=== PATIENT | female | born 1955 | race Caucasian/White ===

== ENCOUNTER 2021-10-22 15:23 | Outpatient (CLI) | payer MEDICAID, SELFPAY ==
[2021-10-22 19:43] LABS: Albumin* 4.5 g/dL (3.3-5.0); Chloride* 105 mmol/L (96-114); Sodium* 142 mmol/L (135-149)
[2021-10-22 19:44] LABS: Potassium* 4.5 mmol/L (3.6-5.1)
[2021-10-22 19:46] LABS: Alkaline Phosphatase* 84 U/L (40-150); Aspartate Amino Transferase* 28 U/L (12-35); Bilirubin Total* 0.3 mg/dL (0.1-1.5); Blood Urea Nitrogen* 8 mg/dL (7-30); Carbon Dioxide* 29 mmol/L (20-32); Cholesterol* 238 mg/dL (90-199); Creatinine* 0.9 mg/dL (0.5-1.5); Estimated Glomerular Filt Rate 70 ml/min; Total Protein* 7.2 g/dL (6.0-8.3)
[2021-10-22 19:47] LABS: Alanine Aminotransferase* 17 U/L (4-35); Calcium* 10.1 mg/dL (8.4-10.6); Glucose* 100 mg/dL (60-115); HDL Cholesterol* 93 mg/dL (>=50); LDL Cholesterol Calculated 121 mg/dL (<100); Triglycerides* 118 mg/dL (40-149)
[2021-10-22 20:04] LABS: Vitamin D 25 Hydroxy* 21 ng/mL (30-80)
[2021-10-22 20:19] LABS: TSH With Reflex to FT4* 0.562 uIU/mL (0.270-4.200)
[2021-10-22 20:22] LABS: Ferritin* 11.9 ng/mL (11.1-264.0)
== END 2021-10-22 15:24 | disposition home or self-care (01) ==
PROVIDERS: PCP Family Medicine; Visit Provider Family Medicine
DX: Z00.00 Encounter for general adult medical examination without abnormal findings (principal); E03.9 Hypothyroidism, unspecified; M85.80 Other specified disorders of bone density and structure, unspecified site; K90.0 Celiac disease; F41.9 Anxiety disorder, unspecified; R73.03 Prediabetes; Z13.6 Encounter for screening for cardiovascular disorders
CPT/HCPCS: 80053; 80061; 82306; 82728; 84443

== ENCOUNTER 2021-11-14 14:31 | Outpatient (RCR) | payer OTHER, SELFPAY | END 2022-05-13 23:59 | disposition home or self-care (01) | LOC: CCIC 14:31 | PROVIDERS: PCP Family Medicine; Visit Provider Internal Medicine Hematology & Oncology | DX: D75.9 Disease of blood and blood-forming organs, unspecified (principal) | CPT/HCPCS: 99212; 99213 ==

== ENCOUNTER 2022-01-02 06:01 | Day surgery (SDC) | payer OTHER, SELFPAY ==
[2022-01-02] VITALS (14 sets, daily range): BP systolic 104–155; BP diastolic 69–93; PULSE 64–85; RESP 14–16; TEMP 36.3–36.8; O2SAT 88–100; BMI 25.4
[2022-01-02] MEDS: LACTATED RINGERS 1000 ML 1,000 ML 100 ML IV ×2 (06:30→08:47)
[2022-01-02] MEDS: SODIUM CHLORIDE 0.9 % (FLUSH) 10 ML SYRINGE IVF (06:43)
[2022-01-02 06:58] LABS: Hemoglobin* 13.9 gm/dL (12.0-16.0)
[2022-01-02] MEDS: CEFAZOLIN 2 GM INJ IVP (08:10)
--- NOTE | 2022-01-02 09:41 | W.ANESCHARGE ---
Anesthesia Charges Start Date/Time Anesthesia Start Date: 01/02/22 Anesthesia Start Time: 08:01 Stop Date/Time Anesthesia Stop Date: 01/02/22 Anesthesia Stop Time: 09:38 Summary Emergency: No
--- NOTE | 2022-01-02 10:11 | W.PM.GYNPROC ---
Procedure Note Date Seen: 01/02/22 Procedure Details: PREOPERATIVE DIAGNOSIS: History of cervical dysplasia with recent ASCUS Pap Intolerant of office exam Symptomatic stage II rectocele POSTOPERATIVE DIAGNOSIS: History of cervical dysplasia with recent ASCUS Pap Intolerant of office exam Symptomatic stage II rectocele Enterocele PROCEDURE: Colposcopy with cervical biopsy and endocervical curettage Posterior colporrhaphy and enterocele repair SURGEON: Annalise Barry MD BLOOD BANK LABORATORY TECHNOLOGIST: Sana Olvera MD ANESTHESIA: General IV FLUIDS: 1400 mL crystalloid URINE OUTPUT: 320 mL via straight catheterization EBL: 5 mL FINDINGS: 1. Upon colposcopy, no aceto-white epithelium was noted on the ectocervix. The cervix was atrophic in appearance with stenosis of cervical os. 2. Stage II rectocele again confirmed under anesthesia, with enterocele also confirmed at time of dissection of posterior vaginal wall. COMPLICATIONS: None PROCEDURE IN DETAIL: Patient was taken to the operating room with IV running. She was positioned in dorsal lithotomy position with her legs fully supported in Yellofin stirrups. General anesthesia was administered. New Speculum inserted. Cervix visualized and cleansed with 5% acetic acid. Colposcope employed to visualize cervix. Unable to view transformation zone, which was entirely within the endocervix. Cervical os was stenotic. Electronic Assembler Group Leader biopsy performed at 6 o'clock. Cervical os dilated with small Hegar dilators. ECC performed in a circumferential fashion and sent to pathology. Hemostasis was noted. Speculum was removed. Allis clamps were used to grasp the vaginal epithelium surrounding the cephalic extent of the posterior vaginal defect, and the remnants of the hymeneal ring laterally. The vaginal epithelium between these clamps was infiltrated with a total of 10 mL of 1% lidocaine with dilute epinephrine. Scalpel was used to incise the posterior vaginal epithelium in the midline, extending from the most cephalic reachable extent of the vagina to the posterior introitus. Vaginal epithelium was dissected away from the underlying fibromuscularis laterally with a combination of sharp and blunt dissection. Enterocele was visible from the most cephalic expect of the incision. The fibro muscularis surrounding this defect was closed with a pursestring suture of 3-0 Vicryl. Thereafter, the fibro muscularis was reapproximated in the midline overlying the posterior defect with interrupted sutures of 2 0 Vicryl in 2 layers. The overlying vaginal epithelium was trimmed. The vaginal epithelium was closed with a running stitch of 2 0 Vicryl. Hemostasis was noted. Vaginal introitus was of appropriate with at the end of the procedure. Rectal exam was performed, revealing no suture material within the rectum. Perineal body was without detectable defect. Patient tolerated procedure well and was taken to recovery area in stable condition..
--- NOTE | 2022-01-02 10:25 | PM.PROC ---
Procedure Note Time Seen by Provider: 10:26 Date Seen: 01/02/22 Date of procedure: 01/02/22 Will [facility] bill your pro fee for this procedure?: Yes Procedure: family services assistant op note: Preoperative diagnosis: 66-year-old with persistent LUCERO 1, grade II rectocele Postoperative diagnosis: Same with additional enterocele Procedure: Colposcopy with cervical biopsy, rectocele and enterocele repairs. Operative note: I was asked to assist Dr. Annalise Barry with the patient's surgery. I aided in dissection, visualization, and obtaining hemostasis. Please see Dr. Annalise Barry's note for complete details. Surgeon: Sana Olvera MD
--- NOTE | 2022-01-02 14:34 | W.ANESCHARGE ---
Anesthesia Charges Start Date/Time Anesthesia Start Date: 01/02/22 Anesthesia Start Time: 08:01 Stop Date/Time Anesthesia Stop Date: 01/02/22 Anesthesia Stop Time: 09:38 Summary Emergency: No
--- NOTE | 2022-01-02 17:40 | P.DS_ITS ---
DS: Providers Provider Time Seen by Provider: 12:00 Date Seen: 01/02/22 Primary care physician: Karol Duke MD Attending Physician on discharge: Annalise Barry MD DS: Diagnosis Discharge Diagnosis (1) Rectocele: Status: Acute LOCOMOTIVE ENGINEER ELECTRIC-Discharge Summary Hospital Course Hospital Course Narrative: Patient is a 66 year old admitted on 01/02/2022 for colposcopy with cervical biopsy, rectocele and enterocele repairs. Indication for surgery: History of cervical dysplasia with recent ASCUS Pap Intolerant of office exam Symptomatic stage II rectocele Intraoperative findings were notable for 1. Upon colposcopy, no aceto-white epithelium was noted on the ectocervix.? The cervix was atrophic in appearance with stenosis of cervical os. 2. Stage II rectocele again confirmed under anesthesia, with enterocele also confirmed at time of dissection of posterior vaginal wall.?. She had an uncomplicated surgery. Postoperative course has been uneventful. Vitals have been stable. She has remained afebrile. Today, on postoperative day 0, she reports the pain is well controlled, in fact, she has no pain. She has been able to ambulate Without difficulty. She is tolerating regular diet. She is passing flatus. Guerra catheter has been removed, and she is voiding without difficulty. She strongly desires discharge prior to it getting dark as she and her support person does not like to drive in the dark. I reviewed signs of surgical complications for which she should seek care. Patient verbalized understanding and is stable and appropriate for discharge. Time Spent with Patient Time attestation: Total time spent providing and/or coordinating discharge services: Time spent: Less than 30 minutes LOCOMOTIVE ENGINEER ELECTRIC - Exam Physical Exam: Vital signs: Temp Pulse Resp BP Pulse Ox O2 Del Method O2 Flow Rate 97.4 F L 85 16 122/74 96 8 01/02/22 11:27 01/02/22 11:58 01/02/22 11:58 01/02/22 11:58 01/02/22 11:58 01/02/22 11:58 01/02/22 09:40 Constitutional: Constitutional: no acute distress Routine HEENT Exam: Head: Present atraumatic and normal inspection Detailed Eye Exam: Eyelids: bilateral: normal inspection Routine Respiratory Exam: Respiratory: Present CTA bilaterally Routine Cardiovascular Exam: Cardiovascular: Present RRR Routine Abdominal Exam: Abdominal: Absent distended or guarding Routine Neurological Exam: Neurological: Present alert and oriented X3 LOCOMOTIVE ENGINEER ELECTRIC - DS: Data Data Completed and Pending Labs on day of discharge: Labs from last 24 hours 01/02/22 01/02/22 06:47 06:47 Hgb 13.9 Blood Type AB Positive Antibody Screen NEGATIVE Procedures Procedures: Procedures Operation Date: 01/02/22 07:15 Actual Procedure Side Surgeon p Colposcopy w/Endocervical biopsy Annalise Barry MD s Posterior Colporrhaphy Annalise Barry MD Discharge Plan Discharge Disposition: Home, Self-Care Discharging Surgeon: Annalise Barry Follow-Up Appointment: 2 weeks Prescriptions: New acetaminophen 325 mg Tablet 650 mg PO Q4H PRN (Reason: minor pain) Qty: 0 0RF hydrocodone-acetaminophen 5-325 mg Tablet 1 - 2 tab PO Q4H PRNQty: 20 0RF docusate sodium 100 mg Capsule 100 mg PO BID PRN (Reason: Constipation) Qty: 0 0RF polyethylene glycol 3350 [Miralax] 17 gram Powder In Packet 17 g PO HS 45 Days Qty: 1 0RF Continued buspirone 15 mg tablet 15 mg PO BID albuterol sulfate 90 mcg/actuation HFA aerosol inhaler 1 inh inhalation PRN levothyroxine 112 mcg tablet 112 mcg PO DIRECTED Rx Instructions: 1 tab daily x 6 days, skip one day a week fluticasone furoate-vilanterol [Breo Ellipta] 100-25 mcg/dose blister with device 1 inh inhalation QDAY cetirizine 10 mg tablet 10 mg PO QDAY PRN acetaminophen 650 mg tablet extended release 1,300 mg PO BID multivitamin Tablet 1 tab PO QAM ketoconazole 2 % shampoo 1 topical DIRECTED Rx Instructions: use twice a week for x 8 weeks, then as needed amoxicillin 500 mg capsule PO ONCE Rx Instructions: 1 HR PRIOR TO DENTAL APPT duloxetine 30 mg capsule,delayed release(DR/EC) 30 mg PO QDAY cholecalciferol (vitamin D3) 25 mcg (1,000 unit) capsule 25 mcg PO QDAY Latuda 60 mg tablet 60 mg PO QDAY Qty: 100 4RF Rx Instructions: must administer with food (at least 350 calories) Discontinued peg 3350-electrolytes [Golytely] 236-22.74-6.74 -5.86 gram recon soln 240 ml PO Q15M Qty: 4000 0RF Rx Instructions: Per endoscopy instructions. Activity Level: Activity as Tolerated Activity Detail: No lifting greater than 20 lbs for 6 weeks. Nothing per vagina for 6 weeks Discharge Diet: Regular Diet Detail: Avoid constipation. Take Miralax as prescribed nightly. Patient Instructions: Posterior Vaginal Repair (DC) Forms: Work/Release Restrictions Follow-up: Karol Duke MD [Primary Care Provider] - Annalise Barry MD [Staff Physician] - Discharge Orders: Discharge Order (Routine); Ordered 01/02/22 Ordered By: Ros Mitchell
== END 2022-01-02 12:30 | disposition home or self-care (01) ==
LOC: OR 06:01 → OB 06:28
PROVIDERS: PCP Family Medicine; Visit Provider Obstetrics & Gynecology
PROC: 0UJH8ZZ Inspection of Vagina and Cul-de-sac, Via Natural or Artificial Opening Endoscopic (ICD-10-PCS; CPT 57454; principal; 2022-01-02 07:15)
PROC: (CPT 57260; 2022-01-02 07:15)
DX: N87.0 Mild cervical dysplasia (principal); N81.6 Rectocele; N81.5 Vaginal enterocele; N88.2 Stricture and stenosis of cervix uteri
CPT/HCPCS: 57454; 57250; 00940; 36415; 51798; 85018; 86850; 86900; 86901; 88305; A9270; J0330; J0690; J1100; J2250; J2405; J2704; J2710; J3010; J7120

== ENCOUNTER 2022-04-09 07:44 | Outpatient (CLI) | payer OTHER, SELFPAY ==
--- NOTE | 2022-04-09 08:00 | CRLHL7_ITS ---
For Patients: As a result of the Century Cures Act, medical imaging exams and procedure reports are released immediately into your electronic medical record. You may view this report before your referring provider. If you have questions, please contact your health care provider. Indication: FAMILY HISTORY OF AORTIC ANEURYSM Technique: Noncontrast CT chest, abdomen and pelvis Please note that all CT scans at this facility use dose modulation, iterative reconstruction, and/or weight-based dosing when appropriate to reduce radiation dose to as low as reasonably achievable. Comparison: 05/20/2021 Findings: In the chest, benign calcified granulomas are noted on the right. No suspicious pulmonary nodule. No infiltrate or edema. No effusion or pneumothorax. Dependent scarring noted bilaterally. COPD/emphysema suggested. There is no fracture. The ascending aorta is normal measuring 3.5 cm. Mild atherosclerotic disease. Slight tortuosity of the distal thoracic aorta. No thoracic aortic aneurysm. Pectus excavatum deformity. In the abdomen, the noncontrast enhanced liver is normal. Normal gallbladder. Unremarkable pancreas and spleen. The adrenal glands are normal. Kidneys are unremarkable. Atherosclerotic changes in the aorta. No aneurysm. No adenopathy. No bowel obstruction. In the pelvis, the appendix is absent. Bilateral total hip replacement hardware. Small cysts within each ovary. Left ovarian calcifications. Uterus is atrophied. No evidence of diverticulitis. No abdominal wall hernia. Normal caliber of the iliac arteries. Degenerative disc disease at L5-S1. Disc space narrowing and spurring L3-4 with slight degenerative retrolisthesis. Impression: No thoracic, abdominal or iliac aneurysm. Mild atherosclerotic disease with some tortuosity of the distal thoracic aorta. Benign calcified pulmonary nodules. No adenopathy or inflammatory change. Please note that all CT scans at this facility use dose modulation, iterative reconstruction, and/or weight-based dosing when appropriate to reduce radiation dose to as low as reasonably achievable. Dictated by Jose Solorzano MD @ 04/10/2022 11:04:35 AM (Electronically Signed)
--- NOTE | 2022-04-09 08:15 | CRLHL7_ITS ---
For Patients: As a result of the Century Cures Act, medical imaging exams and procedure reports are released immediately into your electronic medical record. You may view this report before your referring provider. If you have questions, please contact your health care provider. INDICATION: Family history. TECHNIQUE: 3D ubkw-yc-rekmwn magnetic resonance angiography of the head with 3D MIP reconstructions provided. Diffusion imaging was also acquired. COMPARISON: None. FINDINGS: No proximal large vessel occlusion. The anterior cerebral arteries are patent. The middle cerebral arteries are patent. The posterior cerebral arteries are patent. The intradural vertebral arteries and basilar artery are patent. The intracranial internal carotid arteries are patent. No aneurysm or high flow vascular malformation. No evidence of acute ischemia on the diffusion sequence. IMPRESSION: IMPRESSION 1. Normal appearance of the intracranial arterial circulation, with no proximal large vessel occlusion, flow limiting stenosis or other vascular abnormality. Dictated by David Newman MD @ 04/09/2022 1:27:21 PM (Electronically Signed)
== END 2022-04-09 07:45 | disposition home or self-care (01) ==
LOC: CT 07:46
PROVIDERS: PCP Family Medicine; Visit Provider Family Medicine
DX: Z82.49 Family history of ischemic heart disease and other diseases of the circulatory system (principal); R91.8 Other nonspecific abnormal finding of lung field; I70.0 Atherosclerosis of aorta
CPT/HCPCS: 70544; 71250; 74176

== ENCOUNTER 2022-05-27 14:20 | Outpatient (CLI) | payer OTHER, SELFPAY ==
--- NOTE | 2022-05-27 14:30 | MR_ITS ---
[address] [address] Phone:?[phone] Fax:?[phone] Referring Physician Information: Evans Sy M.D. [id number] [facility] [id number] Phone:?[phone] Fax:?[phone] Patient:Evin Duran D.O.B:?1955 Sex:?Female Phone:?[phone] [facility] MRN:?[id number] Exam Date:?05/27/2022 ? EXAM: MRI of the RIGHT SHOULDER, without contrast CLINICAL: Right shoulder pain. Evaluate for rotator cuff tear. COMPARISONS: X-rays dated 05/20/2022. TECHNICAL: MRI sequences of the right shoulder: Axials: PD, PDFS Coronals: PD, T2FS Sagittals: PDFS, T2 SEDATION: None. CONTRAST: None. FINDINGS: Rotator cuff: Supraspinatus/Infraspinatus: There is full-thickness tearing of the distal supraspinous tendon measuring approximately 12 mm in AP dimension with approximately 12 mm of proximal retraction of torn tendon fibers as seen on coronal series 4 images 11-13 and sagittal series 8 image 5-7. Moderate tendinosis and minimal partial interstitial tearing of the distal infraspinatus tendon. No significant fatty atrophy of the muscle bellies. Teres minor: No tendinosis, tear or atrophy. Subscapularis: Mild tendinosis of the distal tendon. No significant tendon tear and no significant fatty atrophy of the muscle belly. Bursae: Subacromial-subdeltoid: Increased bursal fluid likely secondary to full- thickness rotator cuff tendon tear. Subcoracoid: No significant bursal fluid. Coracoacromial arch: Acromion morphology: Postoperative changes of prior acromioplasty. Acromiohumeral space: Within normal limits. Coracohumeral space: Within normal limits. Biceps tendon, long head: Minimal tendinosis of the tendon without significant tendon tear or displacement. Glenohumeral joint: Moderate volume of glenohumeral joint fluid. Articular cartilage: Small 4 mm chondral defect involving the central glenoid on coronal series 4 image 15. Suspect a small segment of developing deep chondral delamination involving the superomedial humeral head on coronal series 4 image 16-17. Capsule: No convincing evidence of capsular thickening or injury. Labrum: There is tearing throughout the superior labrum. Attenuation and tearing is also seen throughout the posterior labrum as well as the inferior labrum. Ill-defined degenerative fraying/tearing involving the anteroinferior labrum. No perilabral cyst identified. Bones: No suspicious marrow signal alteration, fracture or dislocation. Acromioclavicular joint: Postoperative changes of prior AC joint resection. IMPRESSION: 1. Full-thickness tearing of the distal supraspinatus tendon with approximately 12 mm of proximal retraction of torn tendon fibers. Moderate tendinosis and minimal partial interstitial tearing of the distal infraspinatus tendon with mild subscapularis tendinosis. 2. Tearing throughout the majority of the glenoid labrum. 3. Small 4 mm chondral defect involving the central glenoid with a suspected small segment of developing deep chondral delamination involving the superomedial humeral head. 4. Minimal tendinosis of the intra-articular long head biceps tendon. 5. Postoperative changes of prior acromioplasty and AC joint resection. JCZ Electronically signed on 05/28/2022 7:31:00 AM by Niranjan Armenta D.O.
== END 2022-05-27 14:21 | disposition home or self-care (01) ==
LOC: MRI 14:23
PROVIDERS: PCP Family Medicine; Visit Provider Orthopaedic Surgery Sports Medicine
DX: M25.511 Pain in right shoulder (principal); M75.101 Unspecified rotator cuff tear or rupture of right shoulder, not specified as traumatic; S43.431A Superior glenoid labrum lesion of right shoulder, initial encounter
CPT/HCPCS: 73221

== ENCOUNTER 2022-08-18 06:56 | Day surgery (SDC) | payer OTHER, SELFPAY ==
[2022-08-18] VITALS (16 sets, daily range): BP systolic 95–140; BP diastolic 61–90; PULSE 60–78; RESP 12–20; TEMP 36.3–36.7; O2SAT 93–97; BMI 26.1
[2022-08-18] MEDS: SODIUM CHLORIDE 0.9 % (FLUSH) 10 ML SYRINGE IVF (07:45)
[2022-08-18] MEDS: LACTATED RINGERS 1000 ML 1,000 ML 100 ML IV (07:45)
[2022-08-18] MEDS: fentaNYL 100 MCG/2 ML inj IVP (08:07)
[2022-08-18] MEDS: MIDAZOLAM HCL 1 MG/ML inj IVP (08:07)
--- NOTE | 2022-08-18 08:08 | SUR.PREOP ---
TIME?OUT:?0805 PT/RN/MDA?VERIFICATION?OF?SURGICAL?SITE,?PROCEDURE,?AND?CONSENT OBTAINED?PRIOR?TO?INVASIVE?PROCEDURE. All in agreement.
--- NOTE | 2022-08-18 08:12 | P.NB_ITS ---
Nerve Block Nerve Block Time Seen by Provider: 08:00 Date Seen: 08/18/22 Type of block requested by surgeon for post-operative analgesia: supraclavicular Side: right Time out performed: Yes Verification of patient name: Yes Verification of date of : Yes Site marking: site marked Name of person performing procedure: Kvng Continuous monitoring Was continuous monitoring of O2 sat, B/P, cash van salesperson, recorded every 15 minutes?: Yes Procedure Checklist: sterile prep, needles and gloves Ultrasound guided. Images saved: Yes Medications given in 5ml increments after negative aspiration: Ropivicaine %: 0.5 mL: 20 Needle gauge: 22 Decadron (mg): 10 Precedex (mcg): 20 Patient tolerated procedure well: Yes Block Charges Block Charge (with Pro Fee): Brachial Plexus Use of Ultrasound Machine for Block: Yes- US Guidance/pain block
[2022-08-18] MEDS: CEFAZOLIN 2 GM in 0.9 % SODIUM CHLORIDE Mini-bag 100 ML IVPB (08:33)
[2022-08-18] MEDS: EPINEPHrine 1 MG in SODIUM CHLORIDE IRRIG SOLUTION 3,000 ML 9003 MG IRRIGATION ×3 (08:45→09:50)
--- NOTE | 2022-08-18 10:10 | PM.ORPRC ---
Procedure Note Date of procedure: 08/18/22 Procedure: PREOPERATIVE DIAGNOSES: 1. Right shoulder rotator cuff tear-full thickness supraspinatus and upper border subscapularis 2. Right shoulder labral fraying tearing 3. Right shoulder humeral head chondromalacia 4. Right shoulder long head of the biceps low-grade partial-thickness tearing POSTOPERATIVE DIAGNOSES: 1. Right shoulder rotator cuff tear-full thickness supraspinatus and anterior portion infraspinatus and upper border subscapularis 2. Right shoulder labral fraying tearing 3. Right shoulder humeral head chondromalacia 4. Right shoulder long head of the biceps low-grade partial-thickness tearing NAME OF OPERATION: 1. Right shoulder arthroscopic rotator cuff repair-upper border subscapularis and full breath supraspinatus and anterior portion infraspinatus 2. Right shoulder arthroscopic extensive glenohumeral debridement SURGEON: Evans Sy MD DINING CAR SERVER: Noel Lopez PA-C. Of note, a skilled producer assistant was critical for this case to aide in patient positioning, suture manipulation, arm positioning, instrument positioning, and closure. ANESTHESIA: General plus preoperative supraclavicular block. EBL: 25 mL IMPLANTS: Arthrex 4.75 mm BioComposite SwiveLock suture anchor (x2); 2.6 mm knotless FiberTak RC (x1); 5.5 mm BioComposite SwiveLock suture anchor (x2). COMPLICATIONS: None evident INDICATIONS: The patient is a pleasant, 67-year-old female who has experienced right shoulder pain that has been increasing in recent time. Physical exam and imaging were consistent with a rotator cuff tear. Given their findings, as well as the weakness and pain, and inadequate response to nonoperative management, recommendation was made for surgery. FINDINGS: Exam under anesthesia revealed stable shoulder with excellent range of motion. The diagnostic arthroscopy revealed grade 3 chondromalacia with some loose chondral flaps the superior humeral head. The Subscapularis tendon was torn full-thickness from its upper border with moderate retraction. The long head of the biceps tendon was torn and a low-grade partial-thickness manner. The superior rotator cuff tendon was found to be torn full-thickness throughout the entire supraspinatus and anterior portion infraspinatus. The labrum was degeneratively frayed in the anterior and superior aspects. No loose bodies were identified within the pouch or subscapularis recess. PROCEDURE: Following a thorough discussion of risks, benefits, and alternatives, consent was obtained and the right shoulder was marked. The patient was brought to the operating room and placed supine on the operating table. Induction of anesthesia was completed after preoperative supraclavicular block was administered in preop holding. Appropriate time out was performed identifying proper patient, site, and procedure. 2 g IV Ancef was administered within 1 hour of incision preoperatively. The right upper extremity was prepped and draped in the appropriate sterile fashion using ChloraPrep prep. This was after the patient was positioned in the beach chair with their head in neutral alignment and all bony prominences well padded. The shoulder was insufflated with 20mL of normal saline via an 18g spinal needle from a posterior approach. An 11 blade skin incision allowed a blunt trochar to be inserted and diagnostic arthroscopy to be performed with the findings as noted above. An anterior portal was established with an outside in technique. This allowed the probe to be inserted and confirm the diagnostic arthroscopic findings. The shaver was then inserted and allowed debridement of the anterior and superior labrum as well as the biceps near its origin and the humeral head loose chondral flaps. Following this, the upper border subscapularis was repaired after debriding the lesser tuberosity with the shaver and [place] cautery. Subscapularis was captured in horizontal mattress fashion with a fiber tape suture. The tails were brought to a single anchor in the lesser tuberosity with excellent reapproximation of the subscap tendon and good excursion/tension. Thereafter, the subacromial space was entered. Here, a complete bursectomy was performed allowing improved visualization of the rotator cuff tear which was identified to be large including the entire supraspinatus and anterior portion infraspinatus with retraction to the mid humeral head. There is also secondary tearing of the supraspinatus at the musculotendinous junction, which was low-grade. Further inspection of the supraspinatus and infraspinatus rotator cuff was performed. This identified the tear as noted above. The margins of the tear were debrided, and the greater tuberosity was debrided with a combination of the apollo cautery and shaver. After gentle decortication, a speed bridge configuration with a medial ronald was engaged. 2 medial anchors were placed and the sutures were passed with a fiber link. The knotless of the tails from the medial ronald. Excellent reapproximation of the tissue to the greater tuberosity was achieved with broad footprint compression.[After gentle decortication, single FiberTape mechanism was passed and swap out and temporarily tightened with final cinching reserved for after lateral row fixation. A fiber tape from both the anterior and posterior medial row anchors was then captured in a lateral 5.5 mm BioComposite SwiveLock suture anchor. Excellent footprint compression was achieved against the greater tuberosity. Secondary cinching of the knotless past medial ronald sutures was then engaged fully. The eyelet sutures from the anterolateral anchor were then passed through a small dog ear of the anterior tissue. The shoulder was placed through range of motion and found to be stable. The rotator cuff was re-probed and found to be stable. Instruments were removed. Excess fluid was drained, closure performed with 4-0 Monocryl and Steri-Strips. Dressings were applied. Sling was applied. The patient was awoken from anesthesia and transferred to the PACU in stable condition. A skilled producer assistant was critical for this case to aid in patient positioning, limb positioning, skill to manipulate arthroscopic instruments and camera, suture management, patient safety, and closure. PLAN: 1. Elbow, forearm, wrist and digit range of motion as tolerated. 2. Encouraged ice. 3. Oxycodone for pain as needed. 4. Sling at all times except for ROM and showering. 5. Follow up with PA visit in 1-2 weeks for wound check. Initiate physical therapy following that visit for passive range of motion. Initiate active assisted range of motion at 3-4 weeks. May do pendulums now.
--- NOTE | 2022-08-18 10:34 | W.ANESCHARGE ---
Anesthesia Charges Start Date/Time Anesthesia Start Date: 08/18/22 Anesthesia Start Time: 08:22 Stop Date/Time Anesthesia Stop Date: 08/18/22 Anesthesia Stop Time: 10:32
[2022-08-18] MEDS: LACTATED RINGERS 1000 ML 1,000 ML 35 ML IV ×2 (11:03→11:33)
--- NOTE | 2022-08-18 11:17 | SUR.PHASEI ---
patient met discharge criteria per anesthesia
== END 2022-08-18 13:16 | disposition home or self-care (01) ==
PROVIDERS: PCP Family Medicine; Visit Provider Orthopaedic Surgery Sports Medicine
PROC: (CPT 29805; principal; 2022-08-18 08:30)
DX: M75.121 Complete rotator cuff tear or rupture of right shoulder, not specified as traumatic (principal); S43.431A Superior glenoid labrum lesion of right shoulder, initial encounter; M94.211 Chondromalacia, right shoulder; S46.111A Strain of muscle, fascia and tendon of long head of biceps, right arm, initial encounter; G89.18 Other acute postprocedural pain
CPT/HCPCS: 29827; 29823; 01630; 64415; 76942; C1713; J0171; J0330; J0690; J1100; J2250; J2370; J2405; J2704; J2710; J2795; J3010; J7120; L3670

== ENCOUNTER 2022-11-07 14:41 | Outpatient (CLI) | payer OTHER, SELFPAY ==
--- NOTE | 2022-11-07 15:00 | CRLHL7_ITS ---
For Patients: As a result of the Cures Act, medical imaging exams and procedure reports are released immediately into your electronic medical record. You may view this report before your referring provider. If you have questions, please contact your health care provider. INDICATION: Lung cancer screening. History of smoking. High risk patient with greater than 20 pack-year smoking history. TECHNIQUE: Low-dose lung cancer screening non-contrast CT chest. Dose reduction techniques were used. COMPARISON: 05/20/2021 FINDINGS: NODULES: Small bilateral calcified nodules are present bilaterally. LUNGS AND PLEURA: COPD/emphysema/chronic bronchitis. Scarring within the left lower lobe with bronchiectasis. MEDIASTINUM: Vascular calcifications. CORONARY ARTERY CALCIFICATION: Mild. LIMITED UPPER ABDOMEN: Unremarkable. MUSCULOSKELETAL: Pectus excavatum deformity.. IMPRESSION: Negative for lung cancer screening purposes. LUNG-RADS CATEGORY: 2: Benign. RADIOLOGIST RECOMMENDATION: Continue annual screening with low-dose CT chest in 12 months. Please note that all CT scans at this facility use dose modulation, iterative reconstruction, and/or weight-based dosing when appropriate to reduce radiation dose to as low as reasonably achievable. Dictated by Jose Solorzano MD @ 11/09/2022 12:45:08 PM (Electronically Signed)
== END 2022-11-07 14:42 | disposition home or self-care (01) ==
LOC: CT 14:42
PROVIDERS: PCP Family Medicine; Visit Provider Family Medicine
DX: Z12.2 Encounter for screening for malignant neoplasm of respiratory organs (principal); Z87.891 Personal history of nicotine dependence
CPT/HCPCS: 71271

== ENCOUNTER 2022-11-25 11:08 | Outpatient (CLI) | payer OTHER, SELFPAY | END 2022-11-25 11:09 | disposition home or self-care (01) | PROVIDERS: PCP Family Medicine; Visit Provider Family Medicine | DX: E03.9 Hypothyroidism, unspecified (principal); E55.9 Vitamin D deficiency, unspecified | CPT/HCPCS: 80048; 83735 ==

== ENCOUNTER 2022-12-05 12:40 | Outpatient (CLI) | payer OTHER, SELFPAY ==
--- NOTE | 2022-12-05 13:00 | CRLHL7_ITS ---
For Patients: As a result of the Century Cures Act, medical imaging exams and procedure reports are released immediately into your electronic medical record. You may view this report before your referring provider. If you have questions, please contact your health care provider. INDICATION: Neck pain. TECHNIQUE: Noncontrast MRI of the cervical spine is provided and compared to prior study from June 12, 2014. FINDINGS: Since the prior study there has been interval anterior screw and plate fixation of C4-5 with solid bony fusion. There has been interval development of mild to moderate anterior hypertrophic spurring at the C3-4 and C5-6 levels. Remainder of the cervical spine demonstrates normal overall stature, alignment and intrinsic marrow signal. No abnormal signal within the cervical cord. C2-3: Unremarkable. C3-4: Mild bilateral facet arthropathy. No central canal or foraminal narrowing. C5-6: Central canal appears improved. The neural foramina are patent. C5-6: Interval development of mild disc osteophyte complex resulting in mild to moderate central canal narrowing. Uncovertebral joint and facet arthropathy results in moderate to severe left and moderate right foraminal narrowing. C6-7: Mild disc osteophyte complex results in mild central canal narrowing. Moderate left and mild right foraminal narrowing appearing to have somewhat progressed since the prior study. C7-T1: Stable, evidence of diverticula of the nerve root sleeves laterally which can be a normal developmental variant. No central canal or foraminal narrowing. IMPRESSION: 1. Interval anterior C4-5 fusion that appears solid. 2. Interval development of mild to moderate central canal narrowing with moderate to severe left and moderate right foraminal narrowing at C5-6. 3. Worsening moderate left C6-7 foraminal narrowing. 4. Milder degenerative changes within the remainder of the cervical spine as outlined above. Dictated by Kang Hamilton MD @ 12/06/2022 12:05:09 PM (Electronically Signed)
== END 2022-12-05 12:41 | disposition home or self-care (01) ==
LOC: MRI 12:41
PROVIDERS: PCP Family Medicine; Visit Provider Orthopaedic Surgery Sports Medicine
DX: M54.2 Cervicalgia (principal); M50.223 Other cervical disc displacement at C6-C7 level; M50.222 Other cervical disc displacement at C5-C6 level
CPT/HCPCS: 72141

== ENCOUNTER 2023-01-09 12:41 | Outpatient (CLI) | payer OTHER, SELFPAY ==
--- NOTE | 2023-01-09 13:00 | CRLHL7_ITS ---
For Patients: As a result of the Century Cures Act, medical imaging exams and procedure reports are released immediately into your electronic medical record. You may view this report before your referring provider. If you have questions, please contact your health care provider. BILATERAL SCREENING MAMMOGRAM WITH COMPUTER-AIDED DETECTION AND TOMOSYNTHESIS TECHNIQUE: CC and MLO views were obtained. These mammographic images have been obtained using full-field digital technique. These mammographic images were interpreted with the benefit of computer-aided detection. Breast tomosynthesis was used in this interpretation. FINDINGS: The breasts are heterogeneously dense, which may obscure small masses. IMPRESSION: There is no radiographic evidence for malignancy. ASSESSMENT: BI-RADS Category 1: Negative RECOMMENDATION: Routine screening mammogram in 1 year. A lay language report of this examination will be provided to the patient. JOSE VEGAS M.D. Diagnostic Radiologist [email or web address] Transcribed: 01/12/2023, 5:[address]/Dictated by: Jose Vegas MD @ 01/12/2023 1:19:00 PM (Electronically Signed)
== END 2023-01-09 12:42 | disposition home or self-care (01) ==
PROVIDERS: PCP Family Medicine; Visit Provider Family Medicine
DX: Z12.31 Encounter for screening mammogram for malignant neoplasm of breast (principal); R92.2 Inconclusive mammogram
CPT/HCPCS: 77063; 77067

== ENCOUNTER 2023-02-10 10:57 | Outpatient (CLI) | payer OTHER, SELFPAY | END 2023-02-10 10:58 | disposition home or self-care (01) | LOC: NFLDREF 02-11 12:59 | PROVIDERS: PCP Family Medicine; Referring Provider Family Medicine; Visit Provider Family Medicine | DX: I25.10 Atherosclerotic heart disease of native coronary artery without angina pectoris (principal); I25.84 Coronary atherosclerosis due to calcified coronary lesion; D75.9 Disease of blood and blood-forming organs, unspecified | CPT/HCPCS: 80061 ==

== ENCOUNTER 2023-03-12 11:15 | Outpatient (RCR) | payer OTHER, SELFPAY ==
--- NOTE | 2022-09-08 14:22 | PT.OPEX ---
PT [place] Outpatient Eval PT [facility] Outpatient Eval Start: 09/08/22 07:01 Freq: Status: Active Protocol: Document 09/08/22 07:12 SOLOMON (Rec: 09/08/22 07:17 CLMala [id number]) E-signed By Jovanna Hicks PT Physical Therapy Outpatient Evaluation Insurance Information Recert Due Date 12/03/22 Insurance Name Medicare B Medical Diagnosis Rt RCR (DOS 08/18/22 Treating Diagnosis Impaired AROM, Impaired MMT, Impaired ease of self cares and home tasks/ADL's Rt shoulder pain Referring MD Dr Evans Sy Subjective Subjective Marva reports having Rt shoulder surgery before for bone spurs, about 15 years ago . S/p a fall Feb 16 2022, she had horrific pain which would not go away. Months later went to and found the reason. Had surgery s/p 3 weeks, this is her 20th surgery. Currently, have a constant dull ache at full arm , worse is at the cap of her shoulder but can radiate to wrist. Take ibuprofen/Tylenol intermixed. Denies MURRY, minimal neck pain. Appetite has been poor, has lost 10#. Getting a bit better this past day. Only took the heavy medication for 4 days, but it completely took my appetite away. Sleeping poorly, but she has been in her own bed for the past 5 nights, props with pillow. Pain Comments minimal Date of Last Physician Visit 08/18/22 Date of Next Physician Visit 09/29/22 Current Work Status Retired Precautions Treatment Precautions/Contraindications Asthma, Pre-dibetes, Hypothyroidism, Bipolar Depression, Celiac Ds, Lumbar decompression, CX Discectomy, Antwon AMEE, Lt TKR Weight Bearing Status Full Weight Bearing Therapy Limitations/Systems Review Vision Objective Range of Motion PROM in supine: Rt shoulder FF 0-90 deg / ABD 0-70 deg / ER 0-30 Strength NA Sensation/Reflexes appropriate responses to light touch full arm Assessment Assessment/Impression 67 yo with DX of p/o Rt RCR with DOS 08/18/22. She arrived today 3 weeks p/o wearing sling on Rt UE. She states she can don/doff sling IND, but has a difficult time with ice machine as she is living alone . She has resorted to ice bag instead. Her 9 yo grand daughter stayed with her the first 4 days p/o. She has some CX AROM limitations secondary to 2 CX disc surgeries. CX AROM remains WFL , minimal discomfort with testing, but she states this is her normal. She is IND in bed mobility, has resumed light house cares and food preparation. She has been compliant with HEP thus far of codman's relaxation. She is only taking Tylenol or ibuprofen for pain control. She is eager to progress exercises, but advised to closely follow phases of protocol and Physician guidance. She demonstrates fairly good posture, normal Lt non-involved shoulder AROM and MMT. She will benefit from continued skilled physical therapy to provide STM/MFR/TPR progressive stretch/ strengthening and PROM-AAROM- AROM per protocol and physician approval. Thank you for this referral. Plan of Care Rehabilitation Potential Good Physical Therapy Goals In 4-6 visits, Marva will be able to report/demo: 1. PROM WFL: FF at least 0-130 deg / ABD 0-110 deg / ER 0-50 deg 2. IND in HEP educated thus far to date; emphasis on posture, alignment, reps and HOLD time 3. Sleeping at least 4 hours per night without awakening due to shoulder pain greater than 3/10 average In 10-12 visits, Marva will be able to report/demo: 1. AROM WFL without pain greater than 2/10 2. IND in don/doff overhead shirt without compensatory movements 3. Resume at least 75% of PLOF : driving, laundry, vacuum, wash dishes 4. Lift to/from overhead cabinet up to 15# with use of Antwon UE 5. Repetitive Rt shoulder use waist to crown up to 45 min average, without pain greater than 3/10 75% of the time (put away dishes, meal prep, light to moderate house cleaning, etc) Coordination/Communication With Referral Source Treatment Plan/Direct Interventions Ice/Cold/Vasopneumatic,Joint Mobilization,Manual Therapy, Neuromuscular Re-ed,Self-Care/ Home Management,Therapeutic Activities,Therapeutic Exercises Patient Will Be Discharged From Therapy Completion of LTG(s),Skills Plateau,Independent w/HEP, Independently Progressing Evaluation Billing Untimed Code Treatment Minutes 26 Complexity Moderate Certification Information Initial Certification Date 09/08/22 Ending Certification Date 12/03/22 Provider Signature Shows Agreement With POC & Medical Necessity Physician Signature & Date Requested Please Sign/Date Here Physician Comment/Change : Physician NPI Number #
--- NOTE | 2022-11-12 11:13 | PT.OPEX ---
PT [place] Outpatient Eval PT [facility] Outpatient Eval Start: 09/08/22 07:01 Freq: Status: Active Protocol: Document 11/12/22 07:47 ENM (Rec: 11/12/22 11:07 ENM [id number]) E-signed By Elana Li DPT Physical Therapy Outpatient Evaluation Insurance Information Recert Due Date 02/04/23 Insurance Name Medicare B Medical Diagnosis balance problem other abnormalities of gait and mobility Treating Diagnosis difficulty with ambulation, impaired balance, decreased lower extremity strength Referring MD [facility] Subjective Subjective Patient presents to PT for balance difficulties. Her left side is her weak side, had an ankle fx and hip/ knee replacement on that side. She is afraid to go walking because she doesn't want to fall. Is feeling like her life is being taken away from her due to fear. Is also having difficulty with getting up from the floor when she falls. Stairs are also scary, limited by weakness and stability. With tripping she will fall immediately. Over the last 5 years she has fallen ~15 times. She is also being seen in PT for right rotator cuff repair (DOS ). States that she hardly does any activity or exercises . Her goals for PT are to get stronger and be less afraid to go out. PMHx: B hip replacement, left knee replacement, cervical spinal arthrodesis 2014,lumbar decompression 1982, Current Work Status Retired Objective Other/Pertinent Objective ROM: hip flexion WNL B R knee WNL, L knee 0-0-115 with tightness at end range strength: 5x STS 5 reps 30s, feeling muscles working having to lean more forward 30s STS 5 reps hip flexors 4-/5 B knee extensors L 4-/5 R 4/5 ankle DF 4-/5 B hip extension 3+/5 B hip abduction L 3+/5 R 4-/5 gait/balance: holding for 10s narrow SHI EO no instability narrow SHI EC mild instability modified tandem stance mild instability modified tandem EC mod instability with LOB after 3- 4s FGA most challenged with head turns with gait, gait with eyes closed, changing gait speed special tests: elys mild tightness on R, moderate tightness on L Functional Test Performed & Score ABC scale: least confident stairs 20%, escalator 20%, icy sidewalks 20%, standing on something reach 0% Assessment Assessment/Impression Patient is a 67 year old female presenting with LE weakness and balance impairments. Their primary complaint is of not being able to participate in activities since she is very fearful of falling. Patient has a complex medical history including multiple surgeries, most recent surgery is a right rotator cuff repair (08/18/22) . Upon assessment patient displays instability with head turns during gait, varying gait speed, static and dynamic tandem stance as well as static or dynamic balance with eyes closed. Patient displays LE weakness greater on LLE compared to RLE as well as decreased LE endurance with 30s STS (5 reps completed). Activities specific balance confidence scale 55%, with <67 % signifying increase risk for falling. FGA score of 30 putting patient in falls risk category. Marva would greatly benefit from skilled PT to improve LE strength/endurance as well as balance/stability to decrease risk for future falls allowing patient to be more active again. Primary Functional Limitations stairs, getting off the ground , walking, any mobility due to fear of falls Plan of Care Rehabilitation Potential Good Physical Therapy Goals In 12-14 visits: 1. Patient will be IND with HEP and self management of symptoms 2. Patient will improve FGA from to (MDC 4) to demonstrate improvements in balance/stability 3. Patient will improve 5x STS from 30s to 26s or less (MDC 4s) to demonstrate improvement in LE functional strength/ endurance 4. Patient will improve ABC scale from 55% to 68% (MDC 13% ) to demonstrate improvements in confidence in stability 5. Patient will participate in fitness routine at least 3 days of the week to improve cardiovascular fitness Coordination/Communication With Referral Source Frequency/Duration 2x a week for 4 weeks, 1x a week for 5-6 visits Patient Will Be Discharged From Therapy Completion of LTG(s), Independent w/HEP Evaluation Billing Untimed Code Treatment Minutes 36 Complexity Low Certification Information Initial Certification Date 11/12/22 Ending Certification Date 02/04/23 Provider Signature Shows Agreement With POC & Medical Necessity Physician Signature & Date Requested Please Sign/Date Here Physician Comment/Change : Physician NPI Number #
--- NOTE | 2023-01-29 14:45 | PT.OPDNX ---
PT [place] Outpatient Daily Note PT [place] Outpatient Daily Note Start: 09/08/22 07:01 Freq: Status: Active Protocol: Document 01/28/23 11:40 CLMala (Rec: 01/28/23 11:45 SOLOMON [id number]) E-signed By Jovanna Hicks, PT PT OP Daily Progress Note Visit Information Note Type Discharge Note Visit Number 12 Insurance Information Recert Due Date 12/03/22 Insurance Name Medicare B Medical Diagnosis Rt RCR (DOS 08/18/22) Right shoulder arthroscopic rotator cuff repair-upper border subscapularis and full breath supraspinatus and anterior portion infraspinatus Right shoulder arthroscopic extensive glenohumeral debridement Treating Diagnosis Impaired AROM, Impaired MMT, Impaired ease of self cares and home tasks/ADL's Rt shoulder pain Referring MD Dr Evans Sy Subjective Subjective Client cont to report Fatigue with increased and attempted Rt involved UE use is her biggest concern. Pain is minimal. Sleeping on Rt side at least half of the night. Pain Comments 1-05/09 Precautions Treatment Precautions/Contraindications Asthma, Pre-dibetes, Hypothyroidism, Bipolar Depression, Celiac Ds, Lumbar decompression, CX Discectomy, Antwon AMEE, Lt TKR Weight Bearing Status Full Weight Bearing Home Exercise Home Exercise Comments -sdly ER with 1# weight X 20 reps -ceiling punches serratus strengthening 1# X 30 reps -supine shoulder ABC's X 1 rep of full alphabet. Advised to progress to 3#, then advance to performing in standing. Start with 1# weight again -serratus wall slide/ladder climb with RTB. X 5 reps -Hor ABD with RTB X 20 reps. Access Code: [email or web address] URL: [email or web address]/ Date: 10/10/2022 Prepared by: Elana Li Exercises - Supine Shoulder Flexion AAROM with Hands Clasped - 1- 2 x daily - 7 x weekly - 1 sets - 5-8 reps - Supine Shoulder Press with Dowel - 1-2 x daily - 7 x weekly - 1 sets - 5-8 reps - Seated Shoulder Flexion Towel Slide at Table Top - 1- 2 x daily - 7 x weekly - 1 sets - 10 reps - Seated Shoulder Single Arm Scaption Towel Slides at Counter - 1-2 x daily - 7 x weekly - 1 sets - 10 reps Objective Other/Pertinent Objective 11/04/22: Rt involved Shoulder AROM: Flexion: 0-138 degs before compensation Abduction 0- 150 degs before compensation ER in neutral 0-72 ER in 90 deg of ABD 0-85 Functional reach behind head ER = T3 reach Functional reabh behind back IR =T12 Patient Instructed in Risks/Benefits Yes Therapeutic Exercise Therapeutic Exercise: To Restore Tasks executed this date: Functional Status -UBE X 4 min at slow pace and level 3 resistance -standing alphabet with 2# weight A-Z -ball wall stabs Vert/Hor/CW/ CCW X 10 reps each -standing reverse bowling with 3# weight -shelf reaching X 2 min; height of shoulder and just above crown with .5#/1#/2# weights Manual Therapy Techniques Manual Therapy Techniques Seated for gross Rt shoulder girdle DTM, CFFM at infraspinatus, manual UT stretch and TPR med and sup scap borders Assessment/Impression Assessment/Impression Advised client to use ice post session today, as we were a bit more active. Added reverse bowling and standing alphabet to HEP. Cont with all shelf reaching, theraband and endurance tasks. She exhibits improved posture and arm swing with gait. Nice progress towards goals. AROM and functional reaches were measured and documented above. This may be her last session. She was unsure if she was scheduled for any more. Goals addressed. Plan of Care Physical Therapy Goals In 4-6 visits, Marva will be able to report/demo: 1. PROM WFL: FF at least 0-130 deg / ABD 0-110 deg / ER 0-50 deg. MET 2. IND in HEP educated thus far to date; emphasis on posture, alignment, reps and HOLD time. MET 3. Sleeping at least 4 hours per night without awakening due to shoulder pain greater than 3/10 average. MET In 10-12 visits, Marva will be able to report/demo: 1. AROM WFL without pain greater than 2/10 MET 2. IND in don/doff overhead shirt without compensatory movements. MET 3. Resume at least 75% of PLOF : driving, laundry, vacuum, wash dishes. MET 4. Lift to/from overhead cabinet up to 15# with use of Antwon UE. Partially met, primarily using Lt uninvolved UE. 5. Repetitive Rt shoulder use waist to crown up to 45 min average, without pain greater than 3/10 75% of the time (put away dishes, meal prep, light to moderate house cleaning, etc) MET Daily Plan of Care Discharge Daily Plan of Care Comments Plan: progress reps for AROM exercises ER stretch shoulder extension stretch rhythmic stabilization Discharge Note Discharge Summary Client was seen a total of 12 visits during dates noted Date of First Visit for Therapy 09/08/22 Date of Last Visit for Therapy 11/05/22 Initial Primary Functional Limitations P/O Rt RCR with impaired strength, AROM/PROM, postural deficit. Initial Pain Level moderte Pain Level at Discharge minimal Interventions Provided During Treatment Ice/Cold/Vasopneumatic,Joint Mobilization,Manual Therapy, Neuromuscular Re-Ed, Therapeutic Activities, Therapeutic Exercise,Self Care /Home Management Recommendations/Reason for Discharge Met All Therapy Goals,Progress Cont w/HEP Discharge Instructions It is our hopes client is cont with HEP on a regular basis to fully acquire maximal rehab potential. Thank you for this referral.
== END 2023-07-10 23:59 | disposition home or self-care (01) ==
PROVIDERS: PCP Family Medicine; Visit Provider Orthopaedic Surgery Sports Medicine
DX: M75.101 Unspecified rotator cuff tear or rupture of right shoulder, not specified as traumatic (principal); Z98.890 Other specified postprocedural states; R26.89 Other abnormalities of gait and mobility; M50.30 Other cervical disc degeneration, unspecified cervical region; Z98.1 Arthrodesis status; M25.511 Pain in right shoulder; R26.81 Unsteadiness on feet; R29.898 Other symptoms and signs involving the musculoskeletal system; Z74.09 Other reduced mobility; Z51.89 Encounter for other specified aftercare
CPT/HCPCS: 80053; 80061; 82306; 84443; 97110; 97112; 97140; 97161; 97162; 97164

== ENCOUNTER 2023-07-22 08:01 | Outpatient (CLI) | payer OTHER, SELFPAY | END 2023-07-22 08:02 | disposition home or self-care (01) | LOC: NFLDREF 08:02 | PROVIDERS: PCP Family Medicine; Visit Provider Family Medicine | DX: R39.9 Unspecified symptoms and signs involving the genitourinary system (principal) | CPT/HCPCS: 87086 ==

== ENCOUNTER 2023-10-21 10:52 | Outpatient (CLI) | payer OTHER, SELFPAY ==
--- OUTSIDE RECORDS SUMMARY | 2023-10-21 15:48 | XMS_ITS | Encounter Summary ---
Author Organization [facility] er Address [address] [place] [address] Care Team Providers Care Jewelry Designer Name Role Phone Brandi Parekh MD Primary Care Provider [phone] Reason for Visit * Reason Comments UTI Encounter Details Date Type Department Care Team (Late st Contact Info) Description 10/18/2023 10:40 AM CDT Office Visit [facility] [address] [address] [place] [phone] Raheel Warren PA-C [address] [place] [id number] Acute cystitis with hematuria (Primary Dx); Urinary frequency Social History Tobacco Use Types Packs/Day Years Used Date Smoking Tobacco: Former Cigarettes Q uit: 2018 Smokeless Tobacco: Never Tobacco Cessation:Counseling Given: Not Answered Comments:06/14/20 pt reports stoped smoking tobacco 04/05/20 pt vapes 15 draws qd Alcohol Use Standard Drinks/Week Comments Yes 0 (1 standard drink = 0.6 oz pur e alcohol) 1-2/ month AUDIT-C Answer Date Recorded Q1: How often do you have a drink containing alc ohol? Monthly or less 06/14/2020 Q2: How many drinks containi ng alcohol do you have on a typical day when you are drinking? 1 or 2 06/14/2020 Q3: How often do you have si x or more drinks on one occasion? Never 06/14/2020 PHQ-2 Answer Date Recorded PHQ-9 Total Score 6 06/14/2020 Education Answer Date Recorded What is the highest level of school you have completed or the highest degree you have received? High school graduate 12/12/2017 Sex and Gender Information Value Date Recorded Sex Assigned at Not on file Gender Identity Not on file Sexual Orientation Not on file documented as of this encounter Last Filed Vital Signs Vital Sign Reading Time Taken Comments Blood Pressure 121/87 10/18/2023 10:52 AM CDT Pulse 88 10/18/2023 10:52 AM CDT Temperature 36.5 ??C (97.7 ??F) 10/18/2023 10:52 AM C DT Respiratory Rate 18 10/18/2023 10:52 AM CDT Oxygen Saturation 97% 10/18/2023 10:52 AM CDT Inhaled Oxygen Concentration - - Weight - - Height - - Body Mass Index - - documented in this encounter Patient Instructions * Patient Instructions* Raheel Warren PA-C - 10/18/2023 10:40 AM CDT UTI Plan: -Take Cefdinir twice daily for 5 Days -Drink plenty of fluids (6 cups of water per day) -You can try cranberry juice. This has limited data, but sometimes improved symptoms. -Wipe front to back -Urinate after sexual intercourse -Avoid constipation -If symptoms don't improve or worsen in 2-3 days please follow up with PCP documented in this encounter Progress Notes * Raheel Warren PA-C - 10/18/2023 10:40 AM CDT Subjective Patient ID: Marva Duran is a 68 y.o. female. HPI Patient presents with urinary frequency. Patient has had symptoms for 4-5 days. No history of recurrent UTI's. Endorses bilateral low back pain, lower abdominal pain, generalized weakness, chills for2 days, hematuria, urinary frequency, urgency, and burning. She had a clot with collecting the UA sample. Denies fever, nausea, vomiting, flank pain, shortness of breath, or chest pain. The patient is able to eat and drink. A provider reviewed the following portions of the patient's chart in this encounter and updated as appropriate: Tobacco Allergies Meds Problems Med Hx Surg Hx Fam Hx Objective Blood pressure 121/87, pulse 88, temperature 36.5 ??C (97.7 ??F), resp. rate 18, SpO2 97%, not currently . Physical Exam GENERAL: Well appearing female in no acute distress. HEAD: Normocephalic. LYMPHS: No cervical lymphadenopathy. HEART: Regular rate and rhythm. LUNGS: Clear to auscultation. BACK: No CVA tenderness ABDOMEN: Soft and non distended. Bowel Sounds x4. Non tender. MENTAL: Alert and oriented to person, place, and time. LABS Recent Results (from the past 168 hour(s)) Urinalysis with reflex microscopic (clinic staff collect during appt) Collection Time: 10/18/23 10:46 AM Result Value Ref Range Type CLEAN CATCH Color, Urine RED (A) YELLOW Clarity, Urine CLOUDY (A) CLEAR Glucose, Urine NEGATIVE NEGATIVE mg/dL Bilirubin, Urine NEGATIVE NEGATIVE Ketones, Urine NEGATIVE NEGATIVE mg/dL Specific Helper, Urine 1.015 1.000 ->=1.030 Blood, Urine LARGE (A) NEGATIVE pH, Urine 6.0 5.0 - 7.0 Protein, Urine 100 (A) NEGATIVE-TRACE mg/dL Urobilinogen, Urine 0.2 0.2 - 1.0 E.U./dL Nitrite, Urine NEGATIVE NEGATIVE Leukocytes, Urine SMALL (A) NEGATIVE Assessment/Plan Acute Urinary Tract Infection Yajaira Duran is a 68-year-old female who presents today for evaluation of chills, bilateral lowback pain, frequency, urgency, dysuria, and hematuria. Patient is afebrile, nontoxic, and in no acute distress. UA obtain and positive for large amount of blood and small amount of leukocytes. UA is negative for nitrites. I added on a urine culture. Patient would like to be notified of results via phone call. I told her we will change antibiotics if necessary or if the urine culture is negative we will have her stop the antibiotics and follow- up with her PCP. Will treat as UTI. Patient will be treated with cefdinir 300 mg twice daily for 5 days. Patient encouraged to increase fluids, wipe front to back, and avoid constipation. If symptoms worsen or do not improve they should return. Patientverbalizes understanding. Raheel Warren PA-C documented in this encounter Plan of Treatment Not on file documented as of this encounter Procedures Procedure Name Priority Date/Time Associated Diagnosis Comments ADD-ON TEST REQUEST Routine 10/18/2023 1 1:10 AM CDT Acute cystitis with hematuria URINALYSIS-MICROSCOP IC EXAM (REFLEXED) Routine 10/18/2023 10:46 AM CDT Urinary frequency URINALYSIS WITH REFLEX MICROSCOPIC Routine 10/18/2023 10:46 AM CDT Urinary frequency URINE CULTURE Routine 10/18/2023 10:46 AM CDT documented in this encounter Results * Add-On Test Request (10/18/2023 11:10 AM CDT) Add-on Testing SEE BELOW 10/18/2023 11:33 AM CDT [facility] Comment: Urine Culture added to specimen 10/18/2023 11:1 0 AM CDT 10/18/2023 11:10 AM CDT Raheel Warren PA-C LAB BLOOD ORDERABLES Performing Organization Address City/[facility]/ZIP Co de Phone Number [facility] [address] [place] [phone] * Urine culture (10/18/2023 10:46 AM CDT) Urine Culture <10,000 cfu/ml No further ID. 10/19/2023 6:28 AM CDT [facility] Urine (Urine, Clean Catch) 10/18/2023 10:46 AM CDT 10/18/2023 3:36 PM CDT Comment:Urine Culture Raheel Warren PA-C LAB MICROBIOLOGY - G ENERAL ORDERABLES Performing Organization Address City/[facility]/ZIP Co de Phone Number [facility] [address] [place] [phone] * (ABNORMAL) Urinalysis-Microscopic Exam (10/18/2023 10:46 AM CDT) Casts, urine NONE SEEN 0-2 Hyaline /lpf 10/18/2023 5:24 PM CDT [facility] Significant casts, urine NONE SEEN None Seen /lpf 10/18/2023 5:24 PM CDT [facility] RBC, Urine >100(A) 0 - 3 /hpf 10/18/2023 5:24 PM CDT [facility] WBC, Urine 51-100(A) /hpf 10/18/2023 5:24 PM CDT [facility] Comment: Male: ?? 0-3/hpf Female: 0-10/hpf Squamous Epithelial, Urine FEW Few /lpf 10/18/2023 5:24 PM T [facility] Trans Epithelial, Urine NONE SEEN 0 - 3 /hpf 10/18/2023 5:24 PM T [facility] Renal Tubular Cells, Urine NONE SEEN 0 - 1 /hpf 10/18/2023 5:24 PM T [facility] Bacteria, Urine 1+(A) None Seen - Few /hpf 10/18/2023 5:24 PM T [facility] Urine Crystals NONE SEEN None Seen 10/18/2023 5:24 PM T [facility] 10/18/2023 10:4 6 AM CDT 10/18/2023 3:43 PM CDT Raheel Warren PA-C LAB URINE ORDERABLES [facility] [address] [place] [address] * (ABNORMAL) Urinalysis with reflex microscopic (clinic staff collect during appt) (10/18/2023 10:46 AM CDT) Type CLEAN CATCH 10/18/2023 11:01 AM CDT [facility] Color, Urine RED(A) YELLOW 10/18/2023 11:[address] [facility] Clarity, Urine CLOUDY(A) CLEAR 10/18/2023 11:[address] [facility] Glucose, Urine NEGATIVE NEGATIVE mg/dL 10/18/2023 11:[address] [facility] Bilirubin, Urine NEGATIVE NEGATIVE 10/18/2023 11:01 AM CDT [facility] Ketones, Urine NEGATIVE NEGATIVE mg/dL 10/18/2023 11:01 AM CDT [facility] Specific Helper, Urine 1.015 1.000 ->=1.030 10/18/2023 11:01 AM CDT [facility] Blood, Urine LARGE(A) NEGATIVE 10/18/2023 11:01 AM CDT [facility] pH, Urine 6.0 5.0 - 7.0 10/18/2023 11:01 AM CDT [facility] Protein, Urine 100(A) NEGATIVE-TRA CE mg/dL 10/18/2023 11:01 AM CDT [facility] Urobilinogen, Urine 0.2 0.2 - 1.0 E.U./dL 10/18/2023 11:01 AM CDT [facility] Nitrite, Urine NEGATIVE NEGATIVE 10/18/2023 11:01 AM CDT [facility] Leukocytes, Urine SMALL(A) NEGATIVE 10/18/2023 11:01 AM CDT [facility] Urine (Urine, Clean Catch) 10/18/2023 10:46 AM CDT 10/18/2023 10:49 AM CDT Raheel Warren PA-C LAB URINE ORDERABLES [facility] [address] [place] [address], documented in this encounter Visit Diagnoses Diagnosis Acute cystitis with hematuria- Primary Urinary frequency documented in this encounter Care Teams Jewelry Designer Relationship Specialty Start Date End Date Brandi Parekh MD [address] [place] [phone] PCP - General 02/18/22 documented as of this encounter
--- OUTSIDE RECORDS SUMMARY | 2023-10-21 15:48 | XMS_ITS | Encounter Summary ---
Author Organization [facility] er Address [address] [place] [address] Care Team Providers Care Sales Account Director Name Role Phone Brandi Parekh MD Primary Care Provider [phone] Reason for Visit * Reason Comments Med Refill Encounter Details Date Type Department Care Team (Late st Contact Info) Description 05/11/2020 Refill [facility] [address] [place] [id number] Brandi Parekh MD [address] [place] [phone] Primary hypothyroidism (Primary Dx) Social History Tobacco Use Types Packs/Day Years Used Date Smoking Tobacco: Former Cigarettes Q uit: 2018 Smokeless Tobacco: Never Alcohol Use Standard Drinks/Week Comments Yes 0 (1 standard drink = 0.6 oz pur e alcohol) 1-2/ month AUDIT-C Answer Date Recorded Frequency of Alcohol Consumption Monthly or less 12/14/2018 Average Number of Drinks 1 or 2 019 Frequency of Binge Drinking Never 11/30 PHQ-2 Answer Date Recorded PHQ-2 Score 0 03/08/2020 Education Answer Date Recorded What is the highest level of school you have completed or the highest degree you have received? High school graduate 12/12/2017 Sex and Gender Information Value Date Recorded Sex Assigned at Not on file Gender Identity Not on file Sexual Orientation Not on file documented as of this encounter Miscellaneous Notes * Telephone Encounter - Nelli Bobby LPN - 05/28/2020 8:43 AM CDT Patient contacted again and advised that we still are needing her to complete TSH. She states she'sbeen sick and can't come right now. * Telephone Encounter - Nelli Bobby LPN - 05/21/2020 10:00 AM CDT Patient notified she needs to complete TSH and in agreement. Will hold for results. * Telephone Encounter - Polina Solano RN - 05/17/2020 7:31 AM CDT Patient send MyChart letter to complete TSH lab (under letters). * Telephone Encounter - Nelli Bobby LPN - 05/16/2020 8:15 AM CDT Left message to call back. Patient needs to come in for repeat TSH (due 05/06/20). Dose was increased to the 112 mcg for 6 days of the week on 03/23/20 due to TSH results at that time. Provider will need updated TSH results to determine correct dosing. * Telephone Encounter - Polina Solano RN - 05/15/2020 7:57 AM CDT Patient needs to come in for repeat TSH (due 05/06/20). Dose was increased to the 112 mcg for 6 days of the week on 03/23/20 due to TSH results at that time. Provider will need updated TSH results to determine correct dosing. Left message for patient to call back. * Telephone Encounter - Kyra Kasper MA - 05/14/2020 1:16 PM CDT Pharmacy requesting [facility]: levothyroxine (SYNTHROID) 88 MCG tablet Prescription sent 03/23/2020 levothyroxine (SYNTHROID) 112 MCG tablet Sig: TAKE 1 TABLET BY MOUTH on 6 DAYS AND SKIP DAY 7 Sent to pharmacy as: Levothyroxine Sodium 112 MCG Oral Tablet (SYNTHROID) Class: Normal Notes to Pharmacy: DOSE CHANGE 03/08/2020 E-Prescribing Status: Receipt confirmed by pharmacy (03/23/2020 12:37 PM [facility]) Please advise pharmacy if patient is to continue Levothyroxine 88mcg dosage. documented in this encounter Plan of Treatment Not on file documented as of this encounter Visit Diagnoses Diagnosis Primary hypothyroidism- Primary Unspecified hypothyroidism documented in this encounter Care Teams Sales Account Director Relationship Specialty Start Date End Date Brandi Parekh MD [address] [place] [phone] PCP - General 02/18/22 documented as of this encounter
--- OUTSIDE RECORDS SUMMARY | 2023-10-21 15:48 | XMS_ITS | Clinical Summary ---
Author Organization [facility] er Address [address] [place] [address] Care Team Providers Care Permanent Mold Supervisor Name Role Phone Brandi Parekh MD Primary Care Provider [phone] Allergies Active Allergy Reactions Criticality Noted Date Comments Gluten Nausea And Vomiting Medium 08/20/2018 Naproxen Hives Medium Medications Medication Sig Dispensed Refills Start Date End Date Status Multiple Vitamins-Minerals (MULTIVITAMIN ADULT PO) Take 1 tablet by mouth 1 (one) time each day Active albuterol HFA (VENTOLIN HFA) 108 (90 Base) MCG/ACT inhalerIndications: Wheezing Inhale 1 puff every 6 (six) hours if needed for wheezing 18 g 11 12/16/2017 Active Additional Information Patient not taking.Reported on 10/18/2023 Fluticasone Propionate, Inhal, 55 MCG/ACT aerosol powderIndications:C hronic rhinitis 1 spray Nasal two times a day as needed 1 each 3 03/24/2018 Active Additional Information Patient not taking.Reported on 10/18/2023 diclofenac (VOLTAREN) 1 % topical gel APPLY 2 GRAMS TOPICALLY 4 TIMES DAILY 1 11/15/2018 Active fluocinonide (LIDEX) 0.05 % external solutionIndications :Seborrhea Apply topically 2 (two) times a day 60 mL 2 12/30/2018 Active Additional Information Patient not taking.Reported on 05/24/2019 nicotine (NICODERM CQ) 14 MG/24HR Apply 14 mg patch daily for four to six weeks, then taper to 7 mg for two to six weeks until off. 05/18/2019 Active nicotine polacrilex (COMMIT) [address] 2 mg into mouth between cheek and gum Apply 1 lozenge (2 mg total) to cheek as needed for smoking cessation. 05/19/2019 Active QUEtiapine (SEROquel) 25 MG tabletIndications:C omplex posttraumatic stress disorder Take 1 tablet (25 mg total) by mouth every night 90 tablet 1 06/14/2020 Active Additional Information Patient not taking.Reported on 10/18/2023 levothyroxine (SYNTHROID) 112 MCG tabletIndications:P rimary hypothyroidism TAKE 1 TABLET BY MOUTH DAILY ON 6 DAYS, AND SKIP DAY 7. 90 tablet 3 07/29/2020 Active DULoxetine (CYMBALTA) [address] capsuleIndications: Other depression TAKE 3 CAPSULES BY MOUTH DAILY 270 capsule 09/26/2020 Active Additional Information Patient not taking.Reported on 10/18/2023 cefdinir (OMNICEF) 300 MG capsuleIndications: Acute cystitis with hematuria Take 1 capsule (300 mg total) by mouth 2 (two) times a day for 5 days 10 capsule 10/18/2023 10/23/19 24 Active amoxicillin (AMOXIL) 500 MG tabletIndications:H /O total hip arthroplasty, right Take all 4 tablets by mouth 1 hour prior to dental visit 4 tablet 1 03/26/2018 10/18/19 24 Discontinu ed(Therapy Completed) Active Problems Problem Noted Date Diagnosed Date Asthma 10/18/2023 Bipolar depression 10/18/2023 Bronchiectasis 10/18/2023 Vitamin D deficiency 10/18/2023 Rotator cuff tear, right 10/18/2023 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 10/18/2023 Chronic cough 10/18/2023 History of arthroplasty of right hip 06/14/2020 Quit smoking within past year 06/14/2020 Cannabis use disorder, mild, abuse 11/24/2019 Nicotine dependence with current use 11/24/2019 Exertional dyspnea 11/24/2019 Hospital discharge follow-up 05/24/2019 Chronic post-traumatic stress disorder (PTSD) Recurrent major depressive disorder, in partial remission 05/10/2019 Severe episode of recurrent major depressive disorder, without psychotic features 05/10/2019 Erythrocytosis 12/30/2018 Chronic fatigue 12/30/2018 Anxiety 12/30/2018 LUCERO II (cervical intraepithelial neoplasia II) 1 Overview: 11/2013 LEEP for LUCERO-2, negative margins. 10/2014 ASCUS HPV +, colposcopy LUCERO-1 on random biopsies, ECC negative. 02.04.17 ASCUS HPV18+ HPVother+ 04/2017 Colpo normal, ECC negative. 9.. ASCUS HPV18+ HPVother+[via [facility], [facility]], Colposcopy Uterine polyp 12/14/2018 Cysts of both ovaries 12/14/2018 Chronic iron deficiency anemia 12/14/2018 Lymphocytosis 12/14/2018 Cervical high risk HPV (human papillomavirus) te st positive 11/03/2018 Sensorineural hearing loss (SNHL) of both ears 0 06/28/2018 Preop examination 12/16/2017 Primary osteoarthritis of right hip 12/16/2017 Primary hypothyroidism 12/16/2017 Tobacco abuse 12/16/2017 Elevated blood sugar 12/16/2017 Preventive measure 12/16/2017 Depression 12/16/2017 Seborrhea 12/16/2017 Wheezing 12/16/2017 Hypercalcemia 03/09/2017 Age-related osteoporosis wit hout current pathological fracture 03/01/2015 Mild chronic obstructive pulmonary disease 08/02 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 Generalized anxiety disorder 12/22/2002 Diffuse cystic mastopathy 03/09/1997 Celiac disease Resolved Problems Problem Noted Date Diagnosed Date Resolved Date Encounter to establish care 12/14/2018 12/29/2018 Abnormal Papanicolaou smear of cervix with positive human papilloma virus (HPV) test 12/14/2018 12/29/2018 Encounters Date Type Department Care Team Description 10/18/2023 10:40 AM CDT Office Visit [facility] [address] [address] [place] [address] Raheel Warren PA-C Acute cystitis with hematuria (Primary Dx); Urinary frequency from Last 3 Months Immunizations Name Administration Dates Next Due COVID-19, mRNA, LNP-S, PF, 3 0mcg/0.3mL dose Pfizer 05/08/2020 Flu Vaccine High Dose 65yrs and Older IM 01/01/2020 H1N1 All Forms 02/20/2009 Hepatitis A 07/09/2005,11/19/2004 Hepatitis B 11/12/2005,07/09/2005,11/19/2004 Influenza (IM) Preservative Free 02/20/2009 Influenza 6mo-64yrs Quad Pre servative Free IM 12/01/2018,12/16/2017,02/04/2017,11/22 Influenza TIV (IM) 03/21/2014, 2,11/11/2010,11/08,04/08/2004,01/04/2003 Lyme Disease 08/14/1999,07/11/1999 Pneumococcal Polysaccharide 12/01/2011 Rabies 12/10/2004, 5,11/19/2004,11/19 Td 08/15/2002 Tdap 05/08/2014 Typhoid Live 11/19/2004 Family History Medical History Relation Comments Asthma Daughter Diabetes Mother Melanoma Mother Testicular cancer Son Relation Status Comments Daughter Mother Son Social History Tobacco Use Types Packs/Day Years [...] on file Sexual Orientation Not on file Last Filed Vital Signs Vital Sign Reading Time Taken Comments Blood Pressure 121/87 10/18/2023 10:52 AM CDT Pulse 88 10/18/2023 10:52 AM CDT Temperature 36.5 ??C (97.7 ??F) 10/18/2023 1 0:52 AM CDT Respiratory Rate 18 10/18/2023 10:5 2 AM CDT Oxygen Saturation 97% 10/18/2023 10: 52 AM CDT Inhaled Oxygen Concentration - - Weight 66.2 kg (145 lb 14.4 oz) 06/14/2020 3:32 PM CDT Height 161 cm (5' 3.39) 06/14/2020 3:32 PM CDT Body Mass Index 25.53 06/14/2020 3:32 PM CDT Plan of Treatment Health Maintenance Due Date Last Done Comments CT Colonography 1955 FIT-DNA 1955 Sigmoidoscopy 1955 iFOBT 1954 Fall Risk Performed 1972 Medicare Annual Wellness Visit (AWV) 1972 Zoster Vaccines (1 of 2) 2004 Pneumococcal Vaccine: 65+ Years (2 of 2 - PCV) 11/30/2012 12/01/2011 Mammogram 11/04/2019 11/03/2018, 03/09/2017 Bone Density Scan 03/09/2022 03/09/2017, 09/05/2014 COVID-19 Vaccine (3 - season) 2022 05/29/2020, 05/08/2020 Influenza Vaccine (#1) 2023 , 01/21/2022, 01/15/2021, Additional history exists DTaP,Tdap,and Td Vaccines (2 - Td or Tdap) 05/08/2024 05/08/2014, 08/15/2002 Colonoscopy 10/30/2024 10/30/2014 Colorectal Cancer Screening 10/30/2024 Pap Smear Discontinued 02/04/2017, 10/01, 09/12/2013 HPV Vaccines Aged Out No longer eligi ble based on patient's age to complete this topic Medical Devices Implanted Type Area Medical Records Manager Device Identifier Shelf Expiration Date Model / Serial / Lot [place] Ii Cup 48mm - [id number] Implanted:Qty: 1 on 12/28/2017 by Naresh Hobbs MD at [facility] Right: Hip [employer] 09/29/2026 [id number] / / [id number] [place] Positive Stop - [id number] Implanted:Qty: 1 on 12/28/2017 by Naresh Hobbs MD at [facility] Right: Hip [employer] 08/30/2027 [id number] / / [id number] [place] Por Taper Sz5 Hi Off - [id number] Implanted:Qty: 1 on 12/28/2017 by Naresh Hobbs MD at [facility] Right: Hip [employer] 11/30/2027 [id number] / / [id number] [place] Bone Screw [id number] - [id number] Implanted:Qty: 1 on 12/28/2017 by Naresh Hobbs MD at [facility] Right: Hip [employer] 09/30/2027 [id number] / / [id number] Altrx +4 10d [id number] - [id number] Implanted:Qty: 1 on 12/28/2017 by Naresh Hobbs MD at [facility] Right: Hip [employer] 10/31/2018 [id number] / / [id number] Delta Cer Head 12/14 32mm +5 - [id number] Implanted:Qty: 1 on 12/28/2017 by Naresh Hobbs MD at [facility] Right: Hip [employer] 10/30/2022 [id number] / / [id number] Total Knee Depuy - [id number] Implanted:Qty: 1 on 12/28/2017 by Naresh Hobbs MD at [facility] Right: Hip [id number] / / Procedures Procedure Name Priority Date/Time Associated Diagnosis Comments ADD-ON TEST REQUEST Routine 10/18/2023 1 1:10 AM CDT Acute cystitis with hematuria URINALYSIS-MICROSCOP IC EXAM (REFLEXED) Routine 10/18/2023 10:46 AM CDT Urinary frequency URINALYSIS WITH REFLEX MICROSCOPIC Routine 10/18/2023 10:46 AM CDT Urinary frequency URINE CULTURE Routine 10/18/2023 10:46 AM CDT MAMMOGRAM BREAST SCREENING BILATERAL Routine 03/09/2017 2:06 PM UNDERGROUND MINER DEXA BONE DENSITY Routine 03/09/2017 1:5 0 PM UNDERGROUND MINER PAP TEST Routine 02/04/2017 12:21 PM UNDERGROUND MINER from Last 3 Months or Most Recently Relevant to Health Maintenance Results * Add-On Test Request (10/18/2023 11:10 AM CDT) Add-on Testing SEE BELOW 10/18/2023 11:33 AM CDT [facility] Comment: Urine Culture added to specimen 10/18/2023 11:1 0 AM CDT 10/18/2023 11:10 AM CDT Raheel Warern PA-C LAB BLOOD ORDERABLES [facility] [address] [place] [address] * (ABNORMAL) Urinalysis-Microscopic Exam (10/18/2023 10:46 AM CDT) Pathologist [facility] Casts, urine NONE SEEN 0-2 Hyaline /lpf 10/18/2023 5:24 PM T [facility] Significant casts, urine NONE SEEN None Seen /lpf 10/18/2023 5:24 PM [facility] RBC, Urine >100(A) 0 - 3 /hpf 10/18/2023 5:24 PM T [facility] WBC, Urine 51-100(A) /hpf 10/18/2023 5:24 PM [facility] Comment: Male: ?? 0-3/hpf Female: 0-10/hpf Squamous Epithelial, Urine FEW Few /lpf 10/18/2023 5:24 PM [facility] Trans Epithelial, Urine NONE SEEN 0 - 3 /hpf 10/18/2023 5:24 PM [facility] Renal Tubular Cells, Urine NONE SEEN 0 - 1 /hpf 10/18/2023 5:24 PM [facility] Bacteria, Urine 1+(A) None Seen - Few /hpf 10/18/2023 5:24 PM CDT [facility] Urine Crystals NONE SEEN None Seen 10/18/2023 5:24 PM CDT [facility] 10/18/2023 10:4 6 AM CDT 10/18/2023 3:43 PM CDT Raheel Warren PA-C LAB URINE ORDERABLES [facility] [address] [place] [id number] * (ABNORMAL) Urinalysis with reflex microscopic (clinic staff collect during appt) (10/18/2023 10:46 AM CDT) Type CLEAN CATCH 10/18/2023 11:01 AM CDT [facility] Color, Urine RED(A) YELLOW 10/18/2023 11:01 AM CDT [facility] Clarity, Urine CLOUDY(A) CLEAR 10/18/2023 11:01 AM CDT [facility] Glucose, Urine NEGATIVE NEGATIVE mg/dL 10/18/2023 11:01 AM CDT [facility] Bilirubin, Urine NEGATIVE NEGATIVE 10/18/2023 11:01 AM CDT [facility] Ketones, Urine NEGATIVE NEGATIVE mg/dL 10/18/2023 11:01 AM CDT [facility] Specific [place], Urine 1.015 1.000 ->=1.030 10/18/2023 11:01 AM CDT [facility] Blood, Urine LARGE(A) NEGATIVE 10/18/2023 11:01 AM CDT [facility] pH, Urine 6.0 5.0 - 7.0 10/18/2023 11:01 AM CDT [facility] Protein, Urine 100(A) NEGATIVE-TRA CE mg/dL 10/18/2023 11:01 AM CDT [facility] Urobilinogen, Urine 0.2 0.2 - 1.0 E.U./dL 10/18/2023 11:01 AM CDT [facility] Nitrite, Urine NEGATIVE NEGATIVE 10/18/2023 11:01 AM CDT [facility] Leukocytes, Urine SMALL(A) NEGATIVE 10/18/2023 11:01 AM CDT [facility] Urine (Urine, Clean Catch) 10/18/2023 10:46 AM CDT 10/18/2023 10:49 AM CDT Raheel Warren PA-C LAB URINE ORDERABLES Performing Organization Address City/[facility]/ZIP Co de Phone Number [facility] [address] * Urine culture (10/18/2023 10:46 AM CDT) Urine Culture <10,000 cfu/ml No further ID. 10/19/2023 6:28 AM CDT [facility] Urine (Urine, Clean Catch) 10/18/2023 10:46 AM CDT 10/18/2023 3:36 PM CDT Comment:Urine Culture Raheel Warren PA-C LAB MICROBIOLOGY - G ENERAL ORDERABLES Performing Organization Address [facility] Co de Phone Number [facility] [address] [place] [address] * Mammogram breast screening bilateral (03/09/2017 2:06 PM UNDERGROUND MINER) Anatomical Region Laterality Modality Breast Bilateral Mammography 03/09/2017 2:06 PM UNDERGROUND MINER Impressions 03/09/2017 6:17 PM UNDERGROUND MINER IMPRESSION: BILATERAL BREASTS Negative, no evidence of malignancy. Normal interval follow-up is recommended in 12 months. ASSESSMENT: BI-RADS 1: Final Overall Assessment: Negative ResultCode BIRADS: 1 Side: B-Bilateral Breast composition: 2-Scattered Fibroglandular (25%-50%) Recommendation: N-Normal interval follow up in 12 months CAD REVIEW: Computer aided detection equipment was used during the interpretation of this study.- Narrative 03/09/2017 6:17 PM UNDERGROUND MINER EXAM DESCRIPTION: MAMMOGRAM BILATERAL SCREENING DIGITAL INDICATION: screening mammogram RISK FACTOR: Personal: Post-menopausal patient Family: Weak family history of breast cancer (aunt, grandmother, cousin) COMPARISON: Comparison is made to images from 09/14/2013 (Bilateral) and images from 09/05/2014 (Bilateral) FINDINGS: Bilateral Breast Findings: There are scattered fibroglandular densities (25% - 50% fibroglandular). ??No significant masses, calcifications or other abnormalities are seen. Procedure Note Ramirez Melissa - 11/22/2017 EXAM DESCRIPTION: MAMMOGRAM BILATERAL SCREENING DIGITAL INDICATION: screening mammogram RISK FACTOR: Personal: Post-menopausal patient Family: Weak family history of breast cancer (aunt, grandmother, cousin) COMPARISON: Comparison is made to images from 09/14/2013 (Bilateral) and images from 09/05/2014 (Bilateral) FINDINGS: Bilateral Breast Findings: There are scattered fibroglandular densities (25% - 50% fibroglandular). No significant masses, calcifications or other abnormalities are seen. IMPRESSION: BILATERAL BREASTS Negative, no evidence of malignancy. Normal interval follow-up is recommended in 12 months. ASSESSMENT: BI-RADS 1: Final Overall Assessment: Negative ResultCode BIRADS: 1 Side: B-Bilateral Breast composition: 2-Scattered Fibroglandular (25%-50%) Recommendation: N-Normal interval follow up in 12 months CAD REVIEW: Computer aided detection equipment was used during the interpretation of this study.- Wno Gallagher MD IMG BI PROCEDURES * Dexa bone density axial skeleton (03/09/2017 1:50 PM UNDERGROUND MINER) Anatomical Region Laterality Modality Wrist, Hip, L-spine Radiographic Imaging 03/09/2017 1:50 PM UNDERGROUND MINER Impressions 03/09/2017 2:18 PM UNDERGROUND MINER IMPRESSION: Osteopenia FINDINGS: Patient: JEANNE DURAN Birthdate: ??1955, [age] Height/Weight: ??159.5 cm, 54.6 kg Gender/Ethnicity: Female, White Facility ID: (not specified) Referring Physician: Won Gallagher ?? Measured: ??03/09/2017, 1:40:34 PM, 13.60 Analyzed: ??03/09/2017, 1:45:14 PM, 13.60 Results: Region ?Measured ??Age ?? BMD ?T-score ??Z-score L1-L4 ? 03/09/2017 ??62.5 ??1.012 g/cm2 ??-1.4 ? 0.3 L1-L4 ? 09/05/2014 ??60.0 ??0.979 g/cm2 ??-1.7 ? -0.3 Neck Left ?? 03/09/2017 ??62.5 ??0.760 g/cm2 ??-2.0 ? -0.4 Neck Left ?? 09/05/2014 ??60.0 ??0.792 g/cm2 ??-1.8 ? -0.4 Neck Right ??03/09/2017 ??62.5 ??0.865 g/cm2 ??-1.2 ? 0.3 Neck Right ??09/05/2014 ??60.0 ??0.843 g/cm2 ??-1.4 ? 0.0 Total Left ??03/09/2017 ??62.5 ??0.737 g/cm2 ??-2.1 ? -0.8 Total Left ??09/05/2014 ??60.0 ??0.767 g/cm2 ??-1.9 ? -0.8 Total Right 03/09/2017 ??62.5 ??0.775 g/cm2 ??-1.8 ? -0.5 Total Right 09/05/2014 ??60.0 ??0.782 g/cm2 ??-1.8 ? -0.7 Summary Comparisons Spine The least significant change for the BMD for the AP spine is 0.038 g/cm2. The absolute BMD change from the prior, 0.033 g/cm2, is NOT SIGNIFICANT . Left Neck The least significant change for the BMD for the Left Femur Neck is 0.049 g/cm2. The absolute BMD change from the prior, -0.032 g/cm2, is NOT SIGNIFICANT . Right Neck The least significant change for the BMD for the Right Femur Neck is 0.049 g/cm2. The absolute BMD change from the prior, 0.022 g/cm2, is NOT SIGNIFICANT . Left Total The least significant change for the BMD for the Left Femur Total is 0.026 g/cm2. The absolute BMD change from the prior, -0.030 g/cm2, is SIGNIFICANTLY DECREASED . Right Total The least significant change for the BMD for the Right Femur Total is 0.026 g/cm2. The absolute BMD change from the prior, -0.007 g/cm2, is NOT SIGNIFICANT . ASSESSMENT: The diagnosis in pre-menopausal women and men can be based on low bone mass or evidence of skeletal fragility in the appropriate clinical setting. World Health Organization - Definition of osteoporosis and Osteopenia for Women* Normal: T-Score at or above -1 SD Osteopenia: T-Score between -1 and -2.5 SD Osteoporosis: T-Score at or below -2.5 SD Established Osteoporosis: T-Score at or below -2.5 SD plus fragility fracture *WHO definitions only apply when a young healthy Women reference database is used to determine T- Scores. Narrative 03/09/2017 2:18 PM UNDERGROUND MINER INDICATION: osteopenia f/u; Indication for exam: Previously Diagnosed, see below; Select if this is not a new diagnosis: Osteopenia; Current treatment: Not on treatment for bone loss; Procedure Note Ramirez Melissa - 11/22/2017 INDICATION: osteopenia f/u; Indication for exam: Previously Diagnosed, see below; Select if this is not a new diagnosis: Osteopenia; Current treatment: Not on treatment for bone loss; IMPRESSION: Osteopenia FINDINGS: Patient: JEANNE DURAN Birthdate: 1955, [age] Height/Weight: 159.5 cm, 54.6 kg Gender/Ethnicity: Female, White Facility ID: (not specified) Referring Physician: Won Gallagher MD Measured: 03/09/2017, 1:40:34 PM, Analyzed: 03/09/2017, 1:45:14 PM, Results: Region Measured Age BMD T-score Z-score L1-L4 03/09/2017 62.5 1.012 g/cm2 -1.4 0.3 L1-L4 09/05/2014 60.0 0.979 g/cm2 -1.7 -0.3 Neck Left 03/09/2017 62.5 0.760 g/cm2 -2.0 -0.4 Neck Left 09/05/2014 60.0 0.792 g/cm2 -1.8 -0.4 Neck Right 03/09/2017 62.5 0.865 g/cm2 -1.2 0.3 Neck Right 09/05/2014 60.0 0.843 g/cm2 -1.4 0.0 Total Left 03/09/2017 62.5 0.737 g/cm2 -2.1 -0.8 Total Left 09/05/2014 60.0 0.767 g/cm2 -1.9 -0.8 Total Right 03/09/2017 62.5 0.775 g/cm2 -1.8 -0.5 Total Right 09/05/2014 60.0 0.782 g/cm2 -1.8 -0.7 Summary Comparisons Spine The least significant change for the BMD for the AP spine is 0.038 g/cm2. The absolute BMD change from the prior, 0.033 g/cm2, is NOT SIGNIFICANT . Left Neck The least significant change for the BMD for the Left Femur Neck is 0.049 g/cm2. The absolute BMD change from the prior, -0.032 g/cm2, is NOT SIGNIFICANT . Right Neck The least significant change for the BMD for the Right Femur Neck is 0.049 g/cm2. The absolute BMD change from the prior, 0.022 g/cm2, is NOT SIGNIFICANT . Left Total The least significant change for the BMD for the Left Femur Total is 0.026 g/cm2. The absolute BMD change from the prior, -0.030 g/cm2, is SIGNIFICANTLY DECREASED . Right Total The least significant change for the BMD for the Right Femur Total is 0.026 g/cm2. The absolute BMD change from the prior, -0.007 g/cm2, is NOT SIGNIFICANT . ASSESSMENT: The diagnosis in pre-menopausal women and men can be based on low bone mass or evidence of skeletal fragility in the appropriate clinical setting. World Health Organization - Definition of osteoporosis and Osteopenia for Women* Normal: T-Score at or above -1 SD Osteopenia: T-Score between -1 and -2.5 SD Osteoporosis: T-Score at or below -2.5 SD Established Osteoporosis: T-Score at or below -2.5 SD plus fragility fracture *WHO definitions only apply when a young healthy Women reference database is used to determine T- Scores. Won Gallagher MD IMG DXA PROCEDURES * Pap Smear (02/04/2017 12:21 PM UNDERGROUND MINER) Sure[facility] Pap Test SEE BELOW [facility] Comment: ? [facility] ? [address] ?[place] [address] ? Patient: ?JEANNE DURAN ? Procedure: ? 02/04/2017 12:21 /Age/Sex: ??1955, 61 Y, F ? Received: ?02/05/2017 08:30 ?Accession #: ?? [id number] Billing: ?[id number] ?Patient Location: [facility] Ordered by: ?? WON GALLAGHER MD ? Attending: ? WON GALLAGHER MD ? [facility] CYTOLOGY FINAL REPORT SPECIMEN: (A) SURE PATH PAP, SCREEN SPECIMEN DESCRIPTION: Cervical/Endocervical Received cloudy specimen in SurePath vial. CLINICAL INFORMATION: ?? Prev.abnormal: 2014 ?? Comment: Cryo/Laser/LEEP/Colposcopy: 2014. SPECIMEN ADEQUACY: Satisfactory for Evaluation. ??No endocervical cells/transformation zone component present. GENERAL CATEGORIZATION: Epithelial Cell Abnormality INTERPRETATION/RESULTS: Atypical squamous cells of undetermined significance. Comment: ??An inadequate endocervical/transformational zone component is not necessarily an indication for immediately repeating the pap. Correlation with the history and clinical exam are required. PAP Test Disclaimer Cervical cytology is a screening test primarily for squamous cancer and its precursors and has associated false-negative and false-positive results. Regular sampling and follow-up of unexplained clinical signs and symptoms are recommended to minimize the impact of false negative and false positive results. Screened By: ЕКАТЕРИНА THOMPSON(ASCP) Signed By: ARIANNA ARAUJO MD <Sign Out Signature> Reported: ??02/10/2017 ? Page 1 of 1 [facility] PAP, screen 02/04/2017 12:21 PM UNDERGROUND MINER 02/05/2017 8:30 AM UNDERGROUND MINER Won Gallagher MD LAB CYTOLOGY ORDERAB LES [facility] [address] [place] [address] from Last 3 Months or Most Recently Relevant to Health Maintenance Advance Directives For more information, please contact: [phone] * Full Code (Latest Code Status on File) Date Activated Date Inactivated Comments 12/28/2017 9:36 AM 12/29/2017 2:23 PM Care Teams Permanent Mold Supervisor Relationship Specialty Start Date End Date Brandi Parekh MD [address] [place] [address] [phone] PCP - General 02/18/22
--- OUTSIDE RECORDS SUMMARY | 2023-10-21 15:48 | XMS_ITS | Encounter Summary ---
Author Organization [facility] er Address [address] [place] [address] Care Team Providers Care Knot Bumper Name Role Phone Brandi Parekh MD Primary Care Provider [phone] Reason for Visit * Reason Comments Med Refill Encounter Details Date Type Department Care Team (Late st Contact Info) Description 05/28/2020 Refill [facility] [address] [place] [address] Brandi Parekh MD 210 [place] [address] Primary hypothyroidism Social History Tobacco Use Types Packs/Day Years [...] encounter Miscellaneous Notes * Telephone Encounter - Brandi Parekh MD - 05/31/2020 12:30 PM CDT duplicate * Telephone Encounter - Zane Diego RN - 05/31/2020 11:57 AM CDT Phone call to patient, explained that I had just spoke with the pharmacy staff and that they were getting her prescription ready. * Telephone Encounter - Zane Diego RN - 05/31/2020 11:56 AM CDT Phone call to pharmacy, they have the prescription, but their system was automatically asking for a90 day supply. I explained the situation to the staff and they will get the 30 day supply ready. * Telephone Encounter - Brandi Parekh MD - 05/31/2020 11:28 AM CDT Rx was done for levothyroxine 88 mcg # 30 on 05/28/2020. Please verify with pharmacy and notify pt. Thank you * Telephone Encounter - Nelli Bobby LPN - 05/31/2020 10:32 AM CDT Patient contacted. She states that she is sick and can not come right now for labs. She has been out of medication now for 4 days and requesting just a 30 day supply be sent for her to get her through her illness. Please advise. * Telephone Encounter - Brandi Parekh MD - 05/31/2020 8:15 AM CDT I would not do a 90 day supply as she is due for TSH. Lats TSH from 03/2020 was suppressed and dose was adjusted. Thank you * Telephone Encounter - Inge Winslow MA - 05/30/2020 12:20 PM CDT Pharmacy requesting: Requested Prescriptions Pending Prescriptions Disp Refills ??? levothyroxine (SYNTHROID) 88 MCG tablet [Pharmacy Med Name: LEVOTHYROXINE 0.088MG (88MCG) TAB] 90 tablet Sig: TAKE 1 TABLET BY MOUTH EVERY DAY Pharmacy asking for 90 supply per patient. Please advise pharmacy that patient is in need of lab work. documented in this encounter Plan of Treatment Not on file documented as of this encounter Visit Diagnoses Diagnosis Primary hypothyroidism Unspecified hypothyroidism documented in this encounter Care Teams Knot Bumper Relationship Specialty Start Date End Date Brandi Parekh MD [address] [place] [phone] PCP - General 02/18/22 documented as of this encounter
--- OUTSIDE RECORDS SUMMARY | 2023-10-21 15:48 | XMS_ITS | Encounter Summary ---
Author Organization [facility] er Address [address] [place] [address] Care Team Providers Care Consumer Relations Specialist Name Role Phone Brandi Parekh MD Primary Care Provider [phone] Reason for Visit * Reason Comments Med Refill Encounter Details Date Type Department Care Team (Late st Contact Info) Description 07/24/2020 Refill [facility] [address] [place] [address] Brandi Parekh MD 210 [place] [address] Primary hypothyroidism Social History Tobacco Use Types Packs/Day Years Used Date Smoking Tobacco: Former Cigarettes Q uit: 2018 Smokeless Tobacco: Never Comments:06/14/20 pt reports stoped smoking tobacco 04/05/20 [...] Telephone Encounter - Brandi Parekh MD - 07/29/2020 5:02 PM CDT Noted. Thank you * Telephone Encounter - Purnima Velez LPN - 07/24/2020 2:19 PM CDT PCP will be removed Thank you * Telephone Encounter - Anaid Herrera - 07/24/2020 11:00 AM CDT Pt contacted, stated she has established care at a different facility * Telephone Encounter - Nelli Bobby LPN - 07/24/2020 10:48 AM CDT Patient due for annual exam/PAP and pre-visit labs. Fasting labs are ordered. Please call and assist in scheduling. * Telephone Encounter - Tyra Quiñonez LPN - 07/24/2020 10:35 AM CDT Last visit in provider department: 06/14/2020 Last visit requested medication was discussed: 06/14/2020 Upcoming appointment with provider: Visit date not found Last Rx: 06/05/2020 # 30, 0 refills Requested Prescriptions Pending Prescriptions Disp Refills ??? levothyroxine (SYNTHROID) 112 MCG tablet [Pharmacy Med Name: LEVOTHYROXINE 0.112MG (112MCG) TABS] 90 tablet Sig: TAKE 1 TABLET BY MOUTH 6 DAYS WEEKLY AND SKIP DAY 7 Labs: Component Latest Ref Rng & Units 06/14/2020 TSH 0.46 - 4.68 mIU/L 1.85 Patient has pending labs Vitals: BP Readings from Last 2 Encounters: 06/14/20 140/84 11/24/19 112/76 Patient is due for CP appointment. PSR/Nurse: Please contact patient to assist with scheduling. documented in this encounter Plan of Treatment Not on file documented as of this encounter Visit Diagnoses Diagnosis Primary hypothyroidism Unspecified hypothyroidism documented in this encounter Care Teams Consumer Relations Specialist Relationship Specialty Start Date End Date Brandi Parekh MD [address] [place] [phone] PCP - General 02/18/22 documented as of this encounter
--- OUTSIDE RECORDS SUMMARY | 2023-10-21 15:48 | XMS_ITS | Encounter Summary ---
Author Organization [facility] er Address [address] [place] [address] Care Team Providers Care Glass Decorator Name Role Phone Brandi Parekh MD Primary Care Provider [phone] Reason for Visit * Reason Onset Date Comments Med Refill 03/23/2020 Encounter Details Date Type Department Care Team (Late st Contact Info) Description 03/23/2020 Refill [facility] [address] [place] [address] Brandi Parekh MD 210 [place] [address] Primary hypothyroidism Social History Tobacco [...] encounter Miscellaneous Notes * Telephone Encounter - Alia Vaughan MA - 03/23/2020 7:55 AM MANAGER BUSINESS BANKING Last visit in provider department: 11/24/2019 Last visit requested medication was discussed: 11/24/2019 Upcoming appointment with provider: none Last Rx: 02/20/2020 #30 no refill Requested Prescriptions Pending Prescriptions Disp Refills ??? levothyroxine (SYNTHROID) 112 MCG tablet 90 tablet 0 Sig: TAKE 1 TABLET BY MOUTH EVERY DAY Labs: Component Latest Ref Rng & Units 03/08/2020 TSH 0.46 - 4.68 mIU/L 0.08 (L) Pending TSH in chart GER BUSINESS BANKING documented in this encounter Plan of Treatment Not on file documented as of this encounter Visit Diagnoses Diagnosis Primary hypothyroidism Unspecified hypothyroidism documented in this encounter Care Teams Glass Decorator Relationship Specialty Start Date End Date Brandi Parekh MD [address] [place] [phone] PCP - General 02/18/22 documented as of this encounter
--- OUTSIDE RECORDS SUMMARY | 2023-10-21 15:48 | XMS_ITS | Encounter Summary ---
Author Organization [facility] er Address [address] [place] [address] Care Team Providers Care Kaiako Kura [place] Maori Name Role Phone Brandi Parekh MD Primary Care Provider [phone] Reason for Visit * Reason Comments Med Refill Encounter Details Date Type Department Care Team (Late st Contact Info) Description 06/05/2020 Refill [facility] [address] [place] [address] Brandi Parekh MD 210 [place] [address] Primary hypothyroidism Social History Tobacco [...] Telephone Encounter - Brandi Parekh MD - 06/05/2020 12:46 PM CDT Duplicate request * Telephone Encounter - Zane Diego RN - 06/05/2020 12:15 PM CDT Phone call from patient. This prescription was sent yesterday in error to this pharmacy again. [facility]. I will re process it per protocol, send to the [facility] [place] [facility] pharmacy in [place], take [facility] out of patient preferred pharmacy (she states, I am done with them) and call them to ask them to stop sending us requests. documented in this encounter Plan of Treatment Not on file documented as of this encounter Visit Diagnoses Diagnosis Primary hypothyroidism Unspecified hypothyroidism documented in this encounter Care Teams Kaiako Kura [place] Maori Relationship Specialty Start Date End Date Brandi Parekh MD [address] [place] [phone] PCP - General 02/18/22 documented as of this encounter
--- OUTSIDE RECORDS SUMMARY | 2023-10-21 15:48 | XMS_ITS | Encounter Summary ---
Author Organization [facility] er Address [address] [place] [address] Care Team Providers Care Imaging Specialist Name Role Phone Bradni Parekh MD Primary Care Provider [phone] Encounter Details Date Type Department Care Team (Late st Contact Info) Description 12/30/2017 Telephone [facility] [address] [place] [address] [place] [address] [place] [phone] Social History Tobacco Use Types Packs/Day Years Used Date Smoking Tobacco: Every Day Cigarettes Last attempted to quit: 2017 Smokeless Tobacco: Never Alcohol Use Standard Drinks/Week Comments Yes 0 (1 standard drink = 0.6 oz pur e alcohol) 1-2/ month AUDIT-C Answer Date Recorded Frequency of Alcohol Consumption Monthly or less 12/16/2017 Average Number of Drinks 1 or 2 018 Frequency of Binge Drinking Not on file 11/30 Education Answer Date Recorded What is the highest level of school you have completed or the highest degree you have received? High school graduate 12/12/2017 Sex and Gender Information Value Date Recorded Sex Assigned at Not on file Gender Identity Not on file Sexual Orientation Not on file documented as of this encounter Plan of Treatment Not on file documented as of this encounter Visit Diagnoses Not on filedocumented in this encounter Care Teams Imaging Specialist Relationship Specialty Start Date End Date Brandi Parekh MD 210 [place] [phone] PCP - General 02/18/22 documented as of this encounter
--- OUTSIDE RECORDS SUMMARY | 2023-10-21 15:48 | XMS_ITS | Encounter Summary ---
Author Organization [facility] er Address [address] [place] [address] Care Team Providers Care Nurse Informaticist Name Role Phone Brandi Parekh MD Primary Care Provider [phone] Reason for Visit * Reason Comments Med Refill Encounter Details Date Type Department Care Team (Late st Contact Info) Description 02/17/2020 Refill [facility] [address] [place] [address] Brandi Parekh MD 210 [place] [address] Primary hypothyroidism Social History Tobacco [...] 11/30 PHQ-2 Answer Date Recorded PHQ-2 Score 5 01/05/2020 Education Answer Date Recorded What is the highest level of school you have completed or the highest degree you have received? High school graduate 12/12/2017 Sex and Gender Information Value Date Recorded Sex Assigned at Not on file Gender Identity Not on file Sexual Orientation Not on file documented as of this encounter Miscellaneous Notes * Telephone Encounter - Mavis Jimenez - 02/20/2020 12:28 PM CST Pt has been out of meds for over 4 days. COLLECTOR * Telephone Encounter - Kyra Kasper MA - 02/20/2020 12:19 PM DEBT COLLECTOR Last visit in provider department: 11/24/2019 Last visit requested medication was discussed: 11/24/2019 Upcoming appointment with provider: No appt scheduled Last Rx: #90 no refills 11/25/2019 Requested Prescriptions Pending Prescriptions Disp Refills ??? levothyroxine (SYNTHROID) 112 MCG tablet [Pharmacy Med Name: LEVOTHYROXINE 0.112MG (112MCG) TABS] 90 tablet 0 Sig: TAKE 1 TABLET BY MOUTH EVERY DAY Labs: Component Latest Ref Rng & Units 11/24/2019 TSH 0.46 - 4.68 mIU/L 11.30 (H) Repeat TSH ordered for 01/25/2020 Patient no showed Vitals: BP Readings from Last 2 Encounters: 11/24/19 112/76 05/24/19 108/70 Patient is due for recheck on labs. PSR/Nurse: Please contact patient to assist with scheduling. COLLECTOR documented in this encounter Plan of Treatment Not on file documented as of this encounter Visit Diagnoses Diagnosis Primary hypothyroidism Unspecified hypothyroidism documented in this encounter Care Teams Nurse Informaticist Relationship Specialty Start Date End Date Brandi Parekh MD [address] [place] [phone] PCP - General 02/18/22 documented as of this encounter
--- OUTSIDE RECORDS SUMMARY | 2023-10-21 15:48 | XMS_ITS | Encounter Summary ---
Author Organization [facility] er Address [address] [place] [address] Care Team Providers Care Rubber Molder Name Role Phone Brandi Parekh MD Primary Care Provider [phone] Reason for Visit * Reason Onset Date Comments Med Refill 03/24/2018 Med Refill 04/14/2018 Encounter Details Date Type Department Care Team (Late st Contact Info) Description 03/24/2018 Refill [facility] [address] [place] [address] Junie Gallagher MD [address] [place] [address] Chronic rhinitis (Primary Dx) Social History Tobacco Use Types [...] encounter Miscellaneous Notes * Telephone Encounter - Tamar Chung MA - 03/24/2018 10:34 AM CST Please advise on appt. Last appt was 12/16/2017 for pre - op. Last physical was 02/04/2017 Y DANCER * Telephone Encounter - Bree Jacobson LPN - 03/24/2018 9:24 AM CST Flonase (fluticasone nasal), 50 mcg/inh, spray, nasal, 1 spray(s), (2 times a day), as needed 1 + 2 refill 02/04/17 Last visit for med requested Med not reviewed in the last year Next visit None noted Y DANCER documented in this encounter Plan of Treatment Not on file documented as of this encounter Visit Diagnoses Diagnosis Chronic rhinitis- Primary documented in this encounter Care Teams Rubber Molder Relationship Specialty Start Date End Date Brandi Parekh MD [address] [place] [phone] PCP - General 02/18/22 documented as of this encounter
== END 2023-10-21 10:53 | disposition home or self-care (01) ==
LOC: NFLDREF 15:46
PROVIDERS: PCP Family Medicine; Referring Provider Family Medicine; Visit Provider Family Medicine
DX: E03.9 Hypothyroidism, unspecified (principal); E55.9 Vitamin D deficiency, unspecified; M85.80 Other specified disorders of bone density and structure, unspecified site; R73.03 Prediabetes; F32.A Depression, unspecified; D75.9 Disease of blood and blood-forming organs, unspecified; D72.820 Lymphocytosis (symptomatic)
CPT/HCPCS: 80053; 80061; 82306; 84439; 84443

== ENCOUNTER 2023-10-27 13:12 | Outpatient (CLI) | payer OTHER, SELFPAY ==
--- OUTSIDE RECORDS SUMMARY | 2023-10-27 13:18 | XMS_ITS | Encounter Summary ---
Author Organization [facility] er Address [address] [place] [address] Care Team Providers Care Underwriting Specialist Name Role Phone Brandi Parekh MD Primary Care Provider [phone] Reason for Visit * Reason Comments Med Refill Encounter Details Date Type Department Care Team (Late st Contact Info) Description 02/17/2020 Refill [facility] [address] [place] [address] Brandi Parekh MD 210 [place] [address] Primary hypothyroidism Social History Tobacco [...] out of meds for over 4 days. KEEPER SUPERVISOR * Telephone Encounter - Kyra Kasper MA - 02/20/2020 12:19 PM TIMEKEEPER SUPERVISOR Last visit in provider department: 11/24/2019 Last [...] Please contact patient to assist with scheduling. KEEPER SUPERVISOR documented in this encounter Plan of Treatment Not on file documented as of this encounter Visit Diagnoses Diagnosis Primary hypothyroidism Unspecified hypothyroidism documented in this encounter Care Teams Underwriting Specialist Relationship Specialty Start Date End Date Brandi Parekh MD [address] [place] [phone] PCP - General 02/18/22 documented as of this encounter
--- OUTSIDE RECORDS SUMMARY | 2023-10-27 13:18 | XMS_ITS | Encounter Summary ---
Author Organization [facility] er Address [address] [place] [address] Care Team Providers Care Tank Assembler Name Role Phone Brandi Parekh MD Primary Care Provider [phone] Reason for Visit * Reason Comments Med Refill Encounter Details Date Type Department Care Team (Late st Contact Info) Description 05/11/2020 Refill [facility] [address] [place] [address] Brandi Parekh MD 210 [place] [address] Primary hypothyroidism (Primary Dx) Social [...] Receipt confirmed by pharmacy (03/23/2020 12:37 PM SUPERVISOR CONCRETE BLOCK PLANT) Please advise pharmacy if patient is to continue Levothyroxine 88mcg dosage. documented in this encounter Plan of Treatment Not on file documented as of this encounter Visit Diagnoses Diagnosis Primary hypothyroidism- Primary Unspecified hypothyroidism documented in this encounter Care Teams Tank Assembler Relationship Specialty Start Date End Date Brandi Parekh MD [address] [place] [phone] PCP - General 02/18/22 documented as of this encounter
--- OUTSIDE RECORDS SUMMARY | 2023-10-27 13:18 | XMS_ITS | Encounter Summary ---
Author Organization [facility] er Address [address] [place] [address] Care Team Providers Care Stable Manager Name Role Phone Brandi Parekh MD Primary Care Provider [phone] Reason for Visit * Reason Onset Date Comments Med Refill 03/23/2020 Encounter Details Date Type Department Care Team (Late st Contact Info) Description 03/23/2020 Refill [facility] [address] [place] [address] Brandi Parekh MD 210 [place] [address] Primary hypothyroidism Social History Tobacco [...] Alia Vaughan MA - 03/23/2020 7:55 AM SOFTWARE TEST ANALYST Last visit in provider department: 11/24/2019 Last [...] mIU/L 0.08 (L) Pending TSH in chart WARE TEST ANALYST documented in this encounter Plan of Treatment Not on file documented as of this encounter Visit Diagnoses Diagnosis Primary hypothyroidism Unspecified hypothyroidism documented in this encounter Care Teams Stable Manager Relationship Specialty Start Date End Date Brandi Parekh MD [address] [place] [phone] PCP - General 02/18/22 documented as of this encounter
--- OUTSIDE RECORDS SUMMARY | 2023-10-27 13:18 | XMS_ITS | Clinical Summary ---
Author Organization [facility] er Address [address] [place] [address] Care Team Providers Care Opening Machine Cleaner Name Role Phone Brandi Parekh MD Primary Care Provider [phone] Allergies Active Allergy Reactions Criticality Noted Date [...] if needed for wheezing 18 g 11 8 Active Additional Information Patient not taking.Reported on 10/18/2023 Fluticasone Propionate, Inhal, 55 MCG/ACT aerosol powderIndications:C hronic rhinitis 1 spray Nasal two times a day as needed 1 each 3 9 Active Additional Information Patient not taking.Reported on 10/18/2023 diclofenac (VOLTAREN) 1 % topical gel APPLY 2 GRAMS TOPICALLY 4 TIMES DAILY 1 9 Active fluocinonide (LIDEX) 0.05 % external solutionIndications :Seborrhea Apply topically 2 (two) times a day 60 mL 2 9 Active Additional Information Patient not taking.Reported on 05/24/2019 nicotine (NICODERM CQ) 14 MG/24HR Apply 14 mg patch daily for four to six weeks, then taper to 7 mg for two to six weeks until off. 0 Active nicotine polacrilex (COMMIT) [address] 2 mg into mouth between cheek and gum Apply 1 lozenge (2 mg total) to cheek as needed for smoking cessation. 0 Active QUEtiapine (SEROquel) 25 MG tabletIndications:C omplex posttraumatic stress disorder Take 1 tablet (25 mg total) by mouth every night 90 tablet 1 1 Active Additional Information Patient not taking.Reported on 10/18/2023 levothyroxine (SYNTHROID) 112 MCG tabletIndications:P rimary hypothyroidism TAKE 1 TABLET BY MOUTH DAILY ON 6 DAYS, AND SKIP DAY 7. 90 tablet 3 1 Active DULoxetine (CYMBALTA) [address] capsuleIndications: Other depression TAKE 3 CAPSULES BY MOUTH DAILY 270 capsule 1 Active Additional Information Patient not taking.Reported on 10/18/2023 amoxicillin (AMOXIL) 500 MG tabletIndications:H /O total hip arthroplasty, right Take all 4 tablets by mouth 1 hour prior to dental visit 4 tablet 1 9 10/18/19 24 Discontinue d(Therapy Completed) cefdinir (OMNICEF) 300 MG capsuleIndications: Acute cystitis with hematuria Take 1 capsule (300 mg total) by mouth 2 (two) times a day for 5 days 10 capsule 4 10/23/19 Active Problems Problem Noted Date Diagnosed Date [...] HPV18+ HPVother+ 04/2017 Colpo normal, ECC negative. 11.05. ASCUS HPV18+ HPVother+[via CareEverywhere, [place]], Colposcopy Uterine [...] Description 10/18/2023 10:40 AM CDT Office Visit [facility] [address] [place] [address] Raheel Warren PA-C Acute cystitis with hematuria (Primary Dx); Urinary frequency from Last 3 Months Immunizations Name Administration Dates Next Due COVID-19, mRNA, LNP-S, PF, 3 0mcg/0.3mL dose Pfizer 05/08/2020 Flu Vaccine High Dose 65yrs and Older IM 01/01/2020 H1N1 All Forms 02/20/2009 Hepatitis A 07/09/2005,11/19/2004 Hepatitis B 11/12/2005,07/09/2005,11/19/2004 Influenza 6mo-64yrs Quad Pre servative Free IM 12/01/2018,12/16/2017,02/04/2017,11/22 Influenza, Split Virus, Triv alent, Preservative 03/21/2014,12/01/2011,11/11/2010,11/08,04/08/2004,01/04/2003 Influenza, Trivalent, PF 02/20/2009 Lyme Disease 08/14/1999,07/11/1999 Pneumococcal Polysaccharide 12/01/2011 Rabies [...] Density Scan 03/09/2022 03/09/2017, 09/05/2014 COVID-19 Vaccine ( season) 2022 05/29/2020, 05/08/2020 Influenza Vaccine (#1) 2023 , 01/21/2022, 01/15/2021, Additional history exists DTaP,Tdap,and Td Vaccines (2 - Td or Tdap) 05/08/2024 05/08/2014, 08/15/2002 Colonoscopy 10/30/2024 10/30/2014 Colorectal Cancer Screening 10/30/2024 Pap Smear Discontinued 02/04/2017, 10/01, 09/12/2013 HPV Vaccines Aged Out No longer eligi ble based on patient's age to complete this topic Medical Devices Implanted Type Area Insurance Follow Up Representative Device Identifier Shelf Expiration Date Model / Serial / Lot [place] Ii Cup 48mm - [id number] Implanted:Qty: 1 on 12/28/2017 by Naresh Hobbs MD at [facility] Right: Hip [employer] 09/29/2026 [id number] / / [id number] [place] Positive Stop - [id number] Implanted:Qty: 1 on 12/28/2017 by Naresh Hobbs MD at [facility] Right: Hip [employer] 08/30/2027 [id number] / / [id number] [place] Taper Sz5 Hi Off - [id number] Implanted:Qty: 1 on 12/28/2017 by Naresh Hobbs MD at [facility] Right: Hip [employer] 11/30/2027 [id number] / / [id number] [place] Can Bone Screw [id number] - [id number] Implanted:Qty: 1 on 12/28/2017 by Naresh Hobbs MD at [facility] Right: Hip [employer] 09/30/2027 [id number] / / [id number] Altrx +4 10d [id number] - [id number] Implanted:Qty: 1 on 12/28/2017 by Naresh Hobbs MD at [facility] Right: Hip [employer] 10/31/2018 [id number] / / [id number] Delta Cer Head 12/14 32mm +5 - [id number] Implanted:Qty: 1 on 12/28/2017 by Naresh Hobbs MD at [facility] Right: Hip [employer] 10/30/2022 [id number] / / [id number] Total Knee Depuy - [id number] Implanted:Qty: 1 on 12/28/2017 by Naresh Hobbs MD at [facility] Right: Hip [id number] / / Procedures Procedure Name Priority Date/Time Associated Diagnosis Comments ADD-ON TEST REQUEST Routine 10/18/2023 1 1:10 AM CDT Acute cystitis with hematuria URINALYSIS-MICROSCOP IC EXAM (REFLEXED) Routine 10/18/2023 10:46 AM CDT Urinary frequency URINALYSIS WITH REFLEX MICROSCOPIC Routine 10/18/2023 10:46 AM CDT Urinary frequency URINE CULTURE Routine 10/18/2023 10:46 AM CDT MAMMOGRAM BREAST SCREENING BILATERAL Routine 03/09/2017 2:06 PM LEGAL SERVICES PROFESSIONAL DEXA BONE DENSITY Routine 03/09/2017 1:5 0 PM LEGAL SERVICES PROFESSIONAL PAP TEST Routine 02/04/2017 12:21 PM LEGAL SERVICES PROFESSIONAL from Last 3 Months or Most Recently Relevant to Health Maintenance Results * Add-On Test Request (10/18/2023 11:10 AM CDT) Add-on Testing SEE BELOW 10/18/2023 11:33 AM CDT [facility] Comment: Urine Culture added to specimen 10/18/2023 11:1 0 AM CDT 10/18/2023 11:10 AM CDT Raheel Warren PA-C LAB BLOOD ORDERABLES [facility] [address] [place], [place] [id number] * (ABNORMAL) Urinalysis-Microscopic Exam (10/18/2023 10:46 AM CDT) Casts, urine NONE SEEN 0-2 Hyaline /lpf 10/18/2023 5:24 PM T [facility] Significant casts, urine NONE SEEN None Seen /lpf 10/18/2023 5:24 PM [facility] RBC, Urine >100(A) 0 - 3 /hpf 10/18/2023 5:24 PM [facility] WBC, Urine 51-100(A) /hpf 10/18/2023 5:24 PM [facility] Comment: Male: ?? 0-3/hpf Female: 0-10/hpf Squamous Epithelial, Urine FEW Few /lpf 10/18/2023 5:24 PM [facility] Trans Epithelial, Urine NONE SEEN 0 - 3 /hpf 10/18/2023 5:24 PM [facility] Renal Tubular Cells, Urine NONE SEEN 0 - 1 /hpf 10/18/2023 5:24 PM [facility] Bacteria, Urine 1+(A) None Seen - Few /hpf 10/18/2023 5:24 PM CDT [facility] Urine Crystals NONE SEEN None Seen 10/18/2023 5:24 PM CDT [facility] 10/18/2023 10:4 6 AM CDT 10/18/2023 3:43 PM CDT Raheel Warren PA-C LAB URINE ORDERABLES [facility] [address] [place] [address] * (ABNORMAL) Urinalysis with reflex microscopic (clinic staff collect during appt) (10/18/2023 10:46 AM CDT) Type CLEAN CATCH 10/18/2023 11:01 AM CDT [facility] [employer] [facility] Color, Urine RED(A) YELLOW 10/18/2023 11:[address] [facility] Clarity, Urine CLOUDY(A) CLEAR 10/18/2023 11:[address] [facility] Glucose, Urine NEGATIVE NEGATIVE mg/dL 10/18/2023 11:[address] [facility] [facility] Bilirubin, Urine NEGATIVE NEGATIVE 10/18/2023 11:[address] [facility] Ketones, Urine NEGATIVE NEGATIVE mg/dL 10/18/2023 11:[address] [facility] [facility] Specific [place], Urine 1.015 1.000 ->=1.030 10/18/2023 11:01 AM CDT [facility] [employer] [facility] Blood, Urine LARGE(A) NEGATIVE 10/18/2023 11:[address] [facility] pH, Urine 6.0 5.0 - 7.0 10/18/2023 11:[address] [facility] Protein, Urine 100(A) NEGATIVE-TRA CE mg/dL 10/18/2023 11:[address] [facility] Urobilinogen, Urine 0.2 0.2 - 1.0 E.U./dL 10/18/2023 11:[address] [facility] Nitrite, Urine NEGATIVE NEGATIVE 10/18/2023 11:01 AM CDT [facility] Leukocytes, Urine SMALL(A) NEGATIVE 10/18/2023 11:01 AM CDT [facility] Urine (Urine, Clean Catch) 10/18/2023 10:46 AM CDT 10/18/2023 10:49 AM CDT Raheel Warren PA-C LAB URINE ORDERABLES Performing Organization Address City/[facility]/ZIP Co de Phone Number [facility] [address] [place] [address], * Urine culture (10/18/2023 10:46 AM CDT) Urine Culture <10,000 cfu/ml No further ID. 10/19/2023 6:28 AM CDT [facility] Urine (Urine, Clean Catch) 10/18/2023 10:46 AM CDT 10/18/2023 3:36 PM CDT Comment:Urine Culture Raheel Warren PA-C LAB MICROBIOLOGY - G ENERAL ORDERABLES Performing Organization Address [facility] Co de Phone Number [facility] [address] [place] [address] * Mammogram breast screening bilateral (03/09/2017 2:06 PM LEGAL SERVICES PROFESSIONAL) Anatomical Region Laterality Modality Breast Bilateral Mammography 03/09/2017 2:06 PM LEGAL SERVICES PROFESSIONAL Impressions 03/09/2017 6:17 PM LEGAL SERVICES PROFESSIONAL IMPRESSION: BILATERAL BREASTS Negative, no evidence of malignancy. Normal interval follow-up is recommended in 12 months. ASSESSMENT: BI-RADS 1: Final Overall Assessment: Negative ResultCode BIRADS: 1 Side: B-Bilateral Breast composition: 2-Scattered Fibroglandular (25%-50%) Recommendation: N-Normal interval follow up in 12 months CAD REVIEW: Computer aided detection equipment was used during the interpretation of this study.- Narrative 03/09/2017 6:17 PM LEGAL SERVICES PROFESSIONAL EXAM DESCRIPTION: MAMMOGRAM BILATERAL SCREENING DIGITAL INDICATION: screening mammogram RISK FACTOR: Personal: Post-menopausal patient Family: Weak family history of breast cancer (aunt, grandmother, cousin) COMPARISON: Comparison is made to images from 09/14/2013 (Bilateral) and images from 09/05/2014 (Bilateral) FINDINGS: Bilateral Breast Findings: There are scattered fibroglandular densities (25% - 50% fibroglandular). ??No significant masses, calcifications or other abnormalities are seen. Procedure Note MelissaRamirez - 11/22/2017 EXAM DESCRIPTION: MAMMOGRAM BILATERAL SCREENING [...] used during the interpretation of this study.- Won Gallagher MD IMG BI PROCEDURES * Dexa bone density axial skeleton (03/09/2017 1:50 PM LEGAL SERVICES PROFESSIONAL) Anatomical Region Laterality Modality Wrist, Hip, L-spine Radiographic Imaging 03/09/2017 1:50 PM LEGAL SERVICES PROFESSIONAL Impressions 03/09/2017 2:18 PM LEGAL SERVICES PROFESSIONAL IMPRESSION: Osteopenia FINDINGS: Patient: JEANNE DURAN Birthdate: [...] determine T- Scores. Narrative 03/09/2017 2:18 PM LEGAL SERVICES PROFESSIONAL INDICATION: osteopenia f/u; Indication for exam: Previously [...] Won Gallagher MD Measured: 03/09/2017, 1:40:34 PM, 1360 Analyzed: 03/09/2017, 1:45:14 PM, 13 Results: Region Measured Age BMD T-score Z-score [...] PROCEDURES * Pap Smear (02/04/2017 12:21 PM LEGAL SERVICES PROFESSIONAL) SurePath Pap Test SEE BELOW [facility] Comment: ? [facility] ? [address] ?[place] [address] ? Patient: ?JEANNE DURAN ? Procedure: ? 02/04/2017 12:21 /Age/Sex: ??1955, 61 Y, F ? Received: ?02/05/2017 08:30 ?Accession #: ?? [id number] Billing: ?[id number] ?[place]: [place] [facility] Ordered by: ?? WON GALLAGHER MD ? Attending: ? WON GALLAGHER MD ? [facility] FINAL REPORT SPECIMEN: (A) SURE PATH PAP, SCREEN SPECIMEN DESCRIPTION: Cervical/Endocervical Received cloudy specimen in SurePath vial. CLINICAL INFORMATION: ?? Prev.abnormal: 2015 ?? Comment: Cryo/Laser/LEEP/Colposcopy: 2014. SPECIMEN ADEQUACY: Satisfactory [...] Signed By: ARIANNA ARAUJO MD <Sign Out Dr. Steen> Reported: ??02/10/2017 ? Page 1 of 1 Sure Path PAP, screen 02/04/2017 12:21 PM LEGAL SERVICES PROFESSIONAL 02/05/2017 8:30 AM LEGAL SERVICES PROFESSIONAL Won Gallagher MD LAB CYTOLOGY ORDERAB LES [facility] [address] [place] [address] from Last 3 Months or Most Recently Relevant to Health Maintenance Advance Directives For more information, please contact: [phone] * Full Code (Latest Code Status on File) Date Activated Date Inactivated Comments 12/28/2017 9:36 AM 12/29/2017 2:23 PM Care Teams Opening Machine Cleaner Relationship Specialty Start Date End Date Brandi Parekh MD [address] [place] [phone] PCP - General 02/18/22
--- OUTSIDE RECORDS SUMMARY | 2023-10-27 13:18 | XMS_ITS | Encounter Summary ---
Author Organization [facility] er Address [address] [place] [address] Care Team Providers Care Photo Colorer Name Role Phone Brandi Parekh MD Primary Care Provider [phone] Reason for Visit * Reason Onset Date Comments Med Refill 03/24/2018 Med Refill 04/14/2018 Encounter Details Date Type Department Care Team (Late st Contact Info) Description 03/24/2018 Refill [facility] Internal [facility] [address] [place] [address] Junie Gallagher MD [address] [place] [address] Chronic rhinitis (Primary Dx) Social History [...] pre - op. Last physical was 02/04/2017 UP OPERATOR * Telephone Encounter - Bree Jacobson LPN - 03/24/2018 9:24 AM CST Flonase (fluticasone nasal), 50 mcg/inh, spray, nasal, 1 spray(s), (2 times a day), as needed 1 + 2 refill 02/04/17 Last visit for med requested Med not reviewed in the last year Next visit None noted UP OPERATOR documented in this encounter Plan of Treatment Not on file documented as of this encounter Visit Diagnoses Diagnosis Chronic rhinitis- Primary documented in this encounter Care Teams Photo Colorer Relationship Specialty Start Date End Date Brandi Parekh MD [address] [place] [phone] PCP - General 02/18/22 documented as of this encounter
--- OUTSIDE RECORDS SUMMARY | 2023-10-27 13:18 | XMS_ITS | Encounter Summary ---
Author Organization [facility] er Address [address] [place] [address] Care Team Providers Care Eyeglass Frame Truer Name Role Phone Brandi Parekh MD Primary Care Provider [phone] Reason for Visit * Reason Comments Med Refill Encounter Details Date Type Department Care Team (Late st Contact Info) Description 05/28/2020 Refill [facility] [address] [place] [address] Brandi Parekh MD [address] [place] [address] Primary hypothyroidism Social History Tobacco [...] hypothyroidism documented in this encounter Care Teams Eyeglass Frame Truer Relationship Specialty Start Date End Date Brandi Parekh MD [address] [place] [phone] PCP - General 02/18/22 documented as of this encounter
--- OUTSIDE RECORDS SUMMARY | 2023-10-27 13:18 | XMS_ITS | Encounter Summary ---
Author Organization [facility] er Address [address] [place] [address] Care Team Providers Care Video Production Coordinator Name Role Phone Brandi Parekh MD Primary Care Provider [phone] Encounter Details Date Type Department Care Team (Late st Contact Info) Description 12/30/2017 Telephone [facility] Medical/Surgical [address] [place] [address] [place] [address] [place] [phone] Social History Tobacco Use Types Packs/Day [...] on filedocumented in this encounter Care Teams Video Production Coordinator Relationship Specialty Start Date End Date Brandi Parekh MD [address] [place] [phone] PCP - General 02/18/22 documented as of this encounter
--- OUTSIDE RECORDS SUMMARY | 2023-10-27 13:18 | XMS_ITS | Encounter Summary ---
Author Organization [facility] er Address [address] [place] [address] Care Team Providers Care Medical Clerk Name Role Phone Brandi Parekh MD Primary Care Provider [phone] Reason for Visit * Reason Comments UTI Encounter Details Date Type Department Care Team (Late st Contact Info) Description 10/18/2023 10:40 AM CDT Office Visit [facility] [address] [address] [place] [phone] Raheel Warren PA-C [address] [place] [address] Acute cystitis with hematuria (Primary Dx); [...] NEGATIVE Ketones, Urine NEGATIVE NEGATIVE mg/dL Specific [place], Urine 1.015 1.000 ->=1.030 Blood, Urine LARGE [...] Testing SEE BELOW 10/18/2023 11:33 AM CDT [facility] Comment: Urine Culture added to specimen 10/18/2023 11:1 0 AM CDT 10/18/2023 11:10 AM CDT Raheel Warren PA-C LAB BLOOD ORDERABLES Performing Organization Address City/[facility]/ZIP Co de Phone Number [facility] [address] [place] [phone] * Urine culture (10/18/2023 10:46 AM CDT) Urine Culture <10,000 cfu/ml No further ID. 10/19/2023 6:28 AM CDT [facility] Urine (Urine, Clean Catch) 10/18/2023 10:46 AM CDT 10/18/2023 3:36 PM CDT Comment:Urine Culture Raheel Warren PA-C LAB MICROBIOLOGY - G ENERAL ORDERABLES Performing Organization Address City/[facility]/ZIP Co de Phone Number [facility] [address] [place] [phone] * (ABNORMAL) Urinalysis-Microscopic Exam (10/18/2023 10:46 AM CDT) Casts, urine NONE SEEN 0-2 Hyaline /lpf 10/18/2023 5:24 PM CDT [facility] Significant casts, urine NONE SEEN None Seen /lpf 10/18/2023 5:24 PM CDT [facility] RBC, Urine >100(A) 0 - 3 /hpf 10/18/2023 5:24 PM CDT [facility] WBC, Urine 51-100(A) /hpf 10/18/2023 5:24 PM CDT [facility] Comment: Male: ?? 0-3/hpf Female: 0-10/hpf Squamous Epithelial, Urine FEW Few /lpf 10/18/2023 5:24 PM T [facility] Trans Epithelial, Urine NONE SEEN 0 - 3 /hpf 10/18/2023 5:24 PM T [facility] Renal Tubular Cells, Urine NONE SEEN 0 - 1 /hpf 10/18/2023 5:24 PM T [facility] Bacteria, Urine 1+(A) None Seen - Few /hpf 10/18/2023 5:24 PM T [facility] Urine Crystals NONE SEEN None Seen 10/18/2023 5:24 PM T [facility] 10/18/2023 10:4 6 AM CDT 10/18/2023 3:43 PM CDT Raheel Warren PA-C LAB URINE ORDERABLES [facility] [address] [place] [address] * (ABNORMAL) Urinalysis with reflex microscopic (clinic staff collect during appt) (10/18/2023 10:46 AM CDT) Type CLEAN CATCH 10/18/2023 11:01 AM CDT [facility] [employer] Color, Urine RED(A) YELLOW 10/18/2023 11:01 AM CDT [facility] Clarity, Urine CLOUDY(A) CLEAR 10/18/2023 11:01 AM CDT [facility] Glucose, Urine NEGATIVE NEGATIVE mg/dL 10/18/2023 11:01 AM CDT [facility] Bilirubin, Urine NEGATIVE NEGATIVE 10/18/2023 11:01 AM CDT [facility] Ketones, Urine NEGATIVE NEGATIVE mg/dL 10/18/2023 11:01 AM CDT [facility] Specific [place], Urine 1.015 1.000 ->=1.030 10/18/2023 11:01 AM CDT [facility] Blood, Urine LARGE(A) NEGATIVE 10/18/2023 11:01 AM CDT [facility] pH, Urine 6.0 5.0 - 7.0 10/18/2023 11:01 AM CDT [facility] Protein, Urine 100(A) NEGATIVE-TRA CE mg/dL 10/18/2023 11:01 AM CDT [facility] Urobilinogen, Urine 0.2 0.2 - 1.0 E.U./dL 10/18/2023 11:01 AM CDT [facility] Nitrite, Urine NEGATIVE NEGATIVE 10/18/2023 11:01 AM CDT [facility] Leukocytes, Urine SMALL(A) NEGATIVE 10/18/2023 11:01 AM CDT [facility] Urine (Urine, Clean Catch) 10/18/2023 10:46 AM CDT 10/18/2023 10:49 AM CDT Raheel Warren PA-C LAB URINE ORDERABLES [facility] [address] [place] [address], documented in this encounter Visit Diagnoses Diagnosis Acute cystitis with hematuria- Primary Urinary frequency documented in this encounter Care Teams Medical Clerk Relationship Specialty Start Date End Date Brandi Parekh MD [address] [place] [phone] PCP - General 02/18/22 documented as of this encounter
--- OUTSIDE RECORDS SUMMARY | 2023-10-27 13:18 | XMS_ITS | Encounter Summary ---
Author Organization [facility] er Address [address] [place] [address] Care Team Providers Care Reducing Machine Operator Name Role Phone Brandi Parekh MD Primary Care Provider [phone] Reason for Visit * Reason Comments Med Refill Encounter Details Date Type Department Care Team (Late st Contact Info) Description 07/24/2020 Refill [facility] Internal [facility] [address] [place] [address] Brandi Parekh MD 210 [place] [phone] Primary hypothyroidism Social History Tobacco [...] removed Thank you * Telephone Encounter - Anadi Herrera - 07/24/2020 11:00 AM CDT Pt [...] hypothyroidism documented in this encounter Care Teams Reducing Machine Operator Relationship Specialty Start Date End Date Brandi Parekh MD [address] [place] [phone] PCP - General 02/18/22 documented as of this encounter
--- OUTSIDE RECORDS SUMMARY | 2023-10-27 13:18 | XMS_ITS | Encounter Summary ---
Author Organization [facility] er Address [address] [place] [address] Care Team Providers Care Security Nurse Name Role Phone Brandi Parekh MD Primary Care Provider [phone] Reason for Visit * Reason Comments Med Refill Encounter Details Date Type Department Care Team (Late st Contact Info) Description 06/05/2020 Refill [facility] [address] [place] [address] Brandi Parekh MD 210 [place] [phone] Primary hypothyroidism Social History Tobacco [...] [facility]. I will re process it per protocol, send to the [facility] pharmacy in [place], take [facility]'s out of patient preferred pharmacy (she states, I am done with them) and call them to ask them to stop sending us requests. documented in this encounter Plan of Treatment Not on file documented as of this encounter Visit Diagnoses Diagnosis Primary hypothyroidism Unspecified hypothyroidism documented in this encounter Care Teams Security Nurse Relationship Specialty Start Date End Date Brandi Parekh MD [address] [place] [phone] PCP - General 02/18/22 documented as of this encounter
== END 2023-10-27 13:13 | disposition home or self-care (01) ==
PROVIDERS: PCP Family Medicine; Visit Provider Family Medicine
DX: Z00.00 Encounter for general adult medical examination without abnormal findings (principal); E05.90 Thyrotoxicosis, unspecified without thyrotoxic crisis or storm; E83.42 Hypomagnesemia; E03.9 Hypothyroidism, unspecified; M85.80 Other specified disorders of bone density and structure, unspecified site; R73.03 Prediabetes
CPT/HCPCS: 83735; 84439; 84443; 84445; 84480; 86376

== ENCOUNTER 2023-11-18 13:15 | Outpatient (CLI) | payer OTHER, SELFPAY ==
--- OUTSIDE RECORDS SUMMARY | 2023-11-19 10:55 | XMS_ITS | Encounter Summary ---
Author Organization [facility] er Address [address] [place] [address] Care Team Providers Care Shaper Setter Name Role Phone Brandi Parekh MD Primary Care Provider [phone] Reason for Visit * Reason Comments Med Refill Encounter Details Date Type Department Care Team (Late st Contact Info) Description 07/24/2020 Refill SE Internal Medicine [address] [place] [id number] Brandi Parekh MD 210 [place] [address] Primary hypothyroidism Social History Tobacco [...] hypothyroidism documented in this encounter Care Teams Shaper Setter Relationship Specialty Start Date End Date Brandi Parekh MD [address] [place] [phone] PCP - General 02/18/22 documented as of this encounter
--- OUTSIDE RECORDS SUMMARY | 2023-11-19 10:55 | XMS_ITS | Encounter Summary ---
Author Organization [facility] er Address [address] [place] [address] Care Team Providers Care Kiln Transfer Operator Name Role Phone Brandi Parekh MD Primary Care Provider [phone] Reason for Visit * Reason Comments Urinary Urgency and Dysuria Medicare Annual Wellness Visit Initial Encounter Details Date Type Department Care Team (Late st Contact Info) Description 11/12/2023 11:30 AM CDT Office Visit Internal Medicine [address] [place] [id number] Brandi Parekh MD 210 [place] [address] Urinary urgency (Primary Dx); Dysuria; Need for vaccination with 20-polyvalent pneumococcal conjugate vaccine; Primary hypothyroidism; Medicare annual wellness visit, initial Social History Tobacco Use Types Packs/Day Years Used Date Smoking Tobacco: Former Cigarettes Q uit: 2018 Passive Smoke Exposure: Past Smokeless Tobacco: Never Tobacco Cessation:Counseling Given: Not Answered Comments:06/14/20 pt reports stoped smoking tobacco 04/05/20 pt vapes 15 draws qd Alcohol Use Standard Drinks/Week Comments Yes 0 (1 standard drink = 0.6 oz pur e alcohol) 1-2/ month B1300 Health Literacy Answer Date Recor ded How often do you need to hav e someone help you when you read instructions, pamphlets, or other written material from your doctor or pharmacy? Never 11/12/2023 [facility] Utilities Answer Date Recorded In the past 12 months has e [employer], gas, oil, or water [employer] threatened to shut off services in your home? No 11/12/2023 Humiliation, Afraid, Rape, and Kick questionnair e Answer Date Recorded Within the last year, have y ou been afraid of your partner or ex-partner? Patient declined 11/12/2023 Within the last year, have y ou been humiliated or emotionally abused in other ways by your partner or ex-partner? Patient declined 11/12/2023 Within the last year, have y ou been kicked, hit, slapped, or otherwise physically hurt by your partner or ex-partner? Patient declined 11/12/2023 Within the last year, have y ou been raped or forced to have any kind of sexual activity by your partner or ex-partner? Patient declined 11/12/2023 Social Connection and Isolation Panel [NHANES] A nswer Date Recorded In a typical week, how many times do you talk on the phone with family, friends, or neighbors? Patient declined 11/12/2023 How often do you get togethe r with friends or relatives? Patient declined 11/12/2023 How often do you attend samaritan or worship serv ices? Patient declined 11/12/2023 Do you belong to any clubs o r organizations such as samaritan groups, unions, fraternal or athletic groups, or school groups? Patient declined 11/12/2023 How often do you attend meet ings of the clubs or organizations you belong to? Patient declined 11/12/2023 Are you , , di vorced, , never , or living with a partner? Patient declined 11/12/2023 AUDIT-C Answer Date Recorded Q1: How often do you have a drink containing alc ohol? Monthly or less 11/12/2023 Q2: How many drinks containi ng alcohol do you have on a typical day when you are drinking? 1 or 2 11/12/2023 Q3: How often do you have si x or more drinks on one occasion? Never 11/12/2023 Overall Financial Resource Strain (CARDIA) Answe r Date Recorded How hard is it for you to pa y for the very basics like food, housing, medical care, and heating? Patient declined 11/12/2023 PHQ-2 Answer Date Recorded PHQ-9 Total Score 4 11/12/2023 [facility] - Occupational Stress Questionnaire Answer Date Recorded Do you feel stress - tense, restless, nervous, or anxious, or unable to sleep at night because your mind is troubled all the time - these days? Patient declined 11/12/2023 Exercise Vital Sign Answer Date Recorde d Days of Exercise per Week Not on file 2023 On average, how many minutes do you engage in exercise at this level? Patient declined 11/12/2023 Hunger Vital Sign Answer Date Recorded Within the past 12 months, y ou worried that your food would run out before you got the money to buy more. Patient declined Within the past 12 months, t he food you bought just didn't last and you didn't have money to get more. Patient declined 01/2024 PRAPARE - Transportation Answer Date Re corded In the past 12 months, has l ack of transportation kept you from medical appointments or from getting medications? Patient declined 11/12/2023 In the past 12 months, has l ack of transportation kept you from meetings, work, or from getting things needed for daily living? Patient declined 11/12/2023 Housing Stability Vital Sign Answer Patrick e Recorded In the last 12 months, was t here a time when you were not able to pay the mortgage or rent on time? Patient declined 11/12/19 24 Number of Times Moved in the Last Year Not on fi le 11/12/2023 At any time in the past 12 m [facility], were you homeless or living in a assisted (including now)? Patient declined 11/12/2023 Interpersonal Safety Questionnaire Answer Date Recorded How often does anyone, lylyetelvina blackburn family and friends, physically hurt you? Never 11/12/2023 How often does anyone, jesus blackburn family and friends, insult or talk down to you? Never 11/12/2023 How often does anyone, jesus blackburn family and friends, threaten you with harm? Never 11/12/2023 How often does anyone, jesus blackburn family and friends, threaten you with harm? Never 11/12/2023 Education Answer Date Recorded What is the [...] Sign Reading Time Taken Comments Blood Pressure 148/80 11/12/2023 11:22 AM CDT Pulse 75 11/12/2023 11:22 AM CDT Temperature 36.8 ??C (98.3 ??F) 11/12/2023 11:22 AM C DT Respiratory Rate 14 11/12/2023 11:22 AM CDT Oxygen Saturation 97% 11/12/2023 11:22 AM CDT Inhaled Oxygen Concentration - - Weight 58.5 kg (129 lb) 11/12/2023 11:22 AM CDT Height 160 cm (5' 2.99) 11/12/2023 11:22 AM CDT Body Mass Index 22.86 11/12/2023 11:22 AM CDT documented in this encounter Progress Notes * Brandi Parekh MD - 11/12/2023 11:30 AM CDT New Patient Visit Subjective Patient ID: Marva Duran is a 68 y.o. female. Chief Complaint Patient presents with Urinary Urgency and Dysuria HPI This is a pleasant 68-year-old lady, an established patient of mine although last seen byme in 2020, presents to the clinic today for concerns of bladder infection. Patient has been having urinary urgency and dysuria for 3 days now. She is also had some back pain,lower abdominal pain. She denies any fever. She also states to have been sexually active for 3 to 4months now and recently got about a month ago. She is not sure if this has caused any of her symptoms as she was treated for UTI twice in the last 3 months. The most recent appointment was 09/30 when she received cefdinir for acute cystitis. Urine culture showed less than 10,000 colony.UA showed 50-100 white blood cells, RBC greater than 100. Patient did notice improvement of symptoms with the antibiotic but symptoms did not completely resolve. Hypothyroidism. She was not able to confirm the current dose of levothyroxine which was recently adjusted by her primary care provider in [place]. She had moved up to [place] to help her son and is now back in [place], she is trying to reestablish care here at [facility]. She was advised follow-upTSH following recent dose adjustment on levothyroxine. The following portions of the patient's chart were reviewed in this encounter and updated as appropriate: Tobacco Allergies Meds Problems Med Hx Surg Hx Fam Hx Soc Hx Review of Systems All other systems reviewed and are negative. Objective Visit Vitals BP 148/80 Pulse 75 Temp 36.8 ??C (98.3 ??F) (Temporal) Resp 14 Ht 1.6 m (5' 2.99) Wt 58.5 kg (129 lb) SpO2 97% BMI 22.86 kg/m?? OB Status Postmenopausal Smoking Status Former BSA 1.61 m?? Current Outpatient Medications: albuterol HFA (VENTOLIN HFA) 108 (90 Base) MCG/ACT inhaler, Inhale 1 puff every 6 (six) hours if needed for wheezing (Patient not taking: Reported on 10/18/2023), Disp: 18 g, Rfl: 11 diclofenac (VOLTAREN) 1 % topical gel, APPLY 2 GRAMS TOPICALLY 4 TIMES DAILY (Patient not taking: Reported on 10/18/2023), Disp: , Rfl: 1 DULoxetine (CYMBALTA) [address] capsule, TAKE 3 CAPSULES BY MOUTH DAILY (Patient not taking: Reported on 10/18/2023), Disp: 270 capsule, Rfl: 0 estradiol (ESTRACE) 0.1 MG/GM vaginal cream, INSERT 0.5 GRAMS BY VAGINAL ROUTE ONCE NIGHTLY FOR 2 WEEKS, THEN DECREASE TO TWICE WEEKLY.* (Patient not taking: Reported on 11/12/2023), Disp: , Rfl: fluocinonide (LIDEX) 0.05 % external solution, Apply topically 2 (two) times a day (Patient not taking: Reported on 05/24/2019), Disp: 60 mL, Rfl: 2 Fluticasone Propionate, Inhal, 55 MCG/ACT aerosol powder , 1 spray Nasal two times a day as needed (Patient not taking: Reported on 10/18/2023), Disp: 1 each, Rfl: 3 levothyroxine (SYNTHROID) 112 MCG tablet, TAKE 1 TABLET BY MOUTH DAILY ON 6 DAYS, AND SKIP DAY 7., Disp: 90 tablet, Rfl: 3 LORazepam (ATIVAN) 0.5 MG tablet, Take 1 tablet (0.5 mg total) by mouth 2 (two) times a day if needed for anxiety (Patient not taking: Reported on 11/12/2023), Disp: , Rfl: Multiple Vitamins-Minerals (MULTIVITAMIN ADULT PO), Take 1 tablet by mouth 1 (one) time each day (Patient not taking: Reported on 10/18/2023), Disp: , Rfl: nicotine (NICODERM CQ) 14 MG/24HR, Apply 14 mg patch daily for four to six weeks, then taper to 7 mg for two to six weeks until off. (Patient not taking: Reported on 10/18/2023), Disp: , Rfl: nicotine polacrilex (COMMIT) [address], [address] 2 mg into mouth between cheek and gum Apply 1 lozenge (2 mg total) to cheek as needed for smoking cessation., Disp: , Rfl: QUEtiapine (SEROquel) 25 MG tablet, Take 1 tablet (25 mg total) by mouth every night (Patient not taking: Reported on 10/18/2023), Disp: 90 tablet, Rfl: 1 traZODone (DESYREL) 100 MG tablet, Take 1 tablet (100 mg total) by mouth at night if needed (Patient not taking: Reported on 11/12/2023), Disp: , Rfl: Physical Exam Constitutional: General: She is not in acute distress. Appearance: Normal appearance. She is normal weight. She is not ill-appearing, toxic-appearing or diaphoretic. HENT: Head: Normocephalic and atraumatic. Cardiovascular: Rate and Rhythm: Regular rhythm. Pulmonary: Effort: Pulmonary effort is normal. No respiratory distress. Breath sounds: Normal breath sounds. No wheezing, rhonchi or rales. Abdominal: General: Bowel sounds are normal. There is no distension. Palpations: Abdomen is soft. Tenderness: There is abdominal tenderness (RLQ, suprapubic area). Musculoskeletal: Cervical back: Neck supple. Neurological: Mental Status: She is alert. Assessment/Plan Diagnoses and all orders for this visit: Urinary urgency - Urinalysis with reflex microscopic; Future - Urine culture; Future - cefdinir (OMNICEF) 300 MG capsule; Take 1 capsule (300 mg total) by mouth 2 (two) times a day for10 days Dysuria - Urinalysis with reflex microscopic; Future - Urine culture; Future - cefdinir (OMNICEF) 300 MG capsule; Take 1 capsule (300 mg total) by mouth 2 (two) times a day for10 days Need for vaccination with 20-polyvalent pneumococcal conjugate vaccine Comments: declined 11/12/2023 Primary hypothyroidism - TSH; Future Medicare annual wellness visit, initial Patient to complete UA and a urine culture. She was provided prescription for cefdinir. She will benotified of the results and any changes to the antibiotic. She will also resume using estrogen vaginal cream. Patient to complete pending TSH in 2 weeks after resolution of her urinary symptoms. I have also discussed referral to urogynecology if urine analysis/culture does not suggest of an infection. Patient was encouraged to see me back in 4 weeks to reestablish care. * Pina Mcdaniels LPN - 11/12/2023 11:30 AM CDT Annual Wellness Visit The following portions of the patient's chart were reviewed in this encounter and updated as appropriate: Tobacco Allergies Meds Problems Med Hx Surg Hx Fam Hx Soc Hx Visit Vitals BP 148/80 Pulse 75 Temp 36.8 ??C (98.3 ??F) (Temporal) Resp 14 Ht 1.6 m (5' 2.99) Wt 58.5 kg (129 lb) SpO2 97% BMI 22.86 kg/m?? OB Status Postmenopausal Smoking Status Former BSA 1.61 m?? Pain Assessment Scored: 4 and location: Abdomen (lower) BMI/weight management reviewed: BMI: Body mass index is 22.86 kg/m??. Fall Risk Assessment performed. Scored: 08/13 Tug time: 10 seconds PHQ-9 mental health screening performed. Scored: J CARLOS-7 anxiety screening performed. Scored: Mini-Cog test performed. Scored: / CAGE-AID test performed. Advanced Care Planning: Advance Directive: Patient does not have advance directive, Patient would not like information The following healthcare items are recommended to you based on your age, sex, personal and family history: Health Maintenance Topic Date Due Fall Risk Performed Never done Medicare Annual Wellness Visit (AWV) Never done Zoster Vaccines (1 of 2) Never done Mammogram 11/04/2019 Pneumococcal Vaccine: 65+ Years (3 of 3 - PPSV23 or PCV20) 08/29/2021 Bone Density Scan 03/09/2022 COVID-19 Vaccine (3 - 2022-24 season) 2023 Influenza Vaccine (1) 11/01/2023 DTaP,Tdap,and Td Vaccines (2 - Td or Tdap) 05/08/2024 Colorectal Cancer Screening 10/30/2024 HPV Vaccines Aged Out Pap Smear Discontinued ASCVD Risk Score: The ASCVD Risk score (Melissa MURRAY, et al., 2019) failed to calculate for the following reasons: Cannot find a previous HDL lab Cannot find a previous total cholesterol lab Prostate Cancer Screening: (Male patients only) No results found for: PSA, PSAD Hepatitis C Screening: Recommended for those born between [id number], receiving blood transfusion before 1991, illicit injection drug use No results found for: HEPCAB Glaucoma Screening: Recommended annually if you have diabetes, family history of glaucoma, and over 50 or and over 65. AAA Screening: Screening recommended if not previously done if you have a family history of abdominal aortic aneurysm, or are male age 65-75 and have smoked at least 100 cigarettes in your lifetime Lung Cancer Screening: Recommended annually if age 50-77, asymptomatic, current smoker or quit in last 15 years and have at least a 20 year ???pack year?? history. Social Determinants of Health with Concerns Tobacco Use: Medium Risk (11/12/2023) Financial Resource Strain: Patient Declined (11/12/2023) Food Insecurity: Patient Declined (11/12/2023) Transportation Needs: Patient Declined (11/12/2023) Physical Activity: Unknown (11/12/2023) Stress: Patient Declined (11/12/2023) Social Connections: Patient Declined (11/12/2023) Intimate Partner Violence: Patient Declined (11/12/2023) Depression: At risk (11/12/2023) Housing Stability: Patient Declined (11/12/2023) General Care Management Assessment completed with:: Self How do you rate your overall health?: Very Good Enrolled in care coordination:: No Do you receive care from providers outside of [facility]: Yes Provider Information:: [facility] Do you have a Home Health Agency or receive Internet Developer Assistance?: No Equipment used at home:: None Do you have or see a dentist regularly?: Yes Dentist Name:: [facility] in [place] Do you receive routine eye care?: Yes Location of last eye exam:: [place], [place] Do you wear hearing aids:: No Do you have trouble hearing the TV or conversations:: No Do you have concerns about your hearing?: No How many times in the last 6 months have you been to the emergency room?: 0 How many times in the last 6 months have you been admitted to the hospital?: 0 Home Safety and Activities of Daily Living Screening Does your home have rugs, poor lighting, or slippery floors?: No Do you use any grab bars in your bathroom, stairs, or steps?: Yes Do you have functional smoke and carbon monoxide detectors: Yes Please rate your level of assistance needed with eating:: Independent Please rate your level of assistance needed with walking: Independent Please rate your level of assistance needed with using stairs: Independent Please rate your level of assistance needed when using the bathroom: Independent Please rate your level of assistance needed when bathing: Independent Please rate your level of assistance needed when getting dressed: Independent Please rate your level of assistance needed when cooking: Independent Please rate your level of assistance needed with laundry: Independent Please rate your level of assistance needed with taking medications: Independent Please rate your level of assistance needed with finances: Independent Please rate your level of assistance needed when shopping for groceries: Independent Please rate your level of assistance needed with housework: Independent Please rate your level of assistance needed with driving/transportation: Independent Please rate your level of assistance needed with home repair: Independent An Annual Wellness Visit was completed today with your healthcare team. This visit allows us to review your health history and identify current or potential risks. Referrals, immunizations, and/or testing may be available to you based on these findings. Please let your healthcare team know if you would like any of these services offered today or at any time in the future. Materials for review regarding available services and resources will be provided. Don't hesitate to reach out to your healthcare team with any questions or concerns. documented in this encounter Plan of Treatment Scheduled Orders Name Type Priority Associated Diagnoses Orde r Schedule TSH Lab Routine Primary hypothyroidism Expected: 11/26/2023, Expires: 12/12/202 4 documented as of this encounter Results * Urine culture (11/12/2023 11:58 AM CDT) Urine Culture Multiple organisms indicating likely contamination. 11/13/2023 7:12 AM CDT [facility] Urine (Urine, Clean Catch) 11/12/2023 11:58 AM CDT 11/12/2023 2:11 PM CDT Comment:Urine Culture Brandi Parekh MD LAB MICROBIOLOGY - G ENERAL ORDERABLES [facility] [address] [place] [address] * (ABNORMAL) Urinalysis with reflex microscopic (11/12/2023 11:58 AM CDT) Type CLEAN CATCH 11/12/2023 12:01 PM CDT [facility] Color, Urine YELLOW YELLOW 11/12/2023 12:06 PM [facility] Clarity, Urine CLEAR CLEAR 11/12/2023 12:06 PM [facility] Glucose, Urine NEGATIVE NEGATIVE mg/dL 11/12/2023 12:06 PM [facility] Bilirubin, Urine NEGATIVE NEGATIVE 11/12/2023 12:06 PM [facility] Ketones, Urine NEGATIVE NEGATIVE mg/dL 11/12/2023 12:06 PM [facility] Specific [place], Urine <=1.005 1.000 ->=1.030 11/12/2023 12:06 PM [facility] Blood, Urine SMALL(A) NEGATIVE 11/12/2023 12:06 PM [facility] pH, Urine 6.0 5.0 - 7.0 11/12/2023 12:06 PM [facility] Protein, Urine NEGATIVE NEGATIVE-TRA CE mg/dL 11/12/2023 12:06 PM [facility] Urobilinogen, Urine 0.2 0.2 - 1.0 E.U./dL 11/12/2023 12:06 PM [facility] Nitrite, Urine NEGATIVE NEGATIVE 11/12/2023 12:06 PM CDT [facility] Leukocytes, Urine MODERATE(A) NEGATIVE 11/12/2023 12:06 PM CDT [facility] Urine (Urine, Clean Catch) 11/12/2023 11:58 AM CDT 11/12/2023 12:01 PM CDT Brandi Parekh MD LAB URINE ORDERABLES [facility] [address] [place] [id number] documented in this encounter Visit Diagnoses Diagnosis Urinary urgency- Primary Urgency of urination Dysuria Need for vaccination with 20-polyvalent pneumococcal conjugate vaccine Primary hypothyroidism Unspecified hypothyroidism Medicare annual wellness visit, initial documented in this encounter Care Teams Kiln Transfer Operator Relationship Specialty Start Date End Date Brandi Parekh MD 210 [place] [phone] PCP - General 02/18/22 documented as of this encounter
--- OUTSIDE RECORDS SUMMARY | 2023-11-19 10:55 | XMS_ITS | Encounter Summary ---
Author Organization [facility] er Address [address] [place] [address] Care Team Providers Care District Commercial Superintendent Name Role Phone Brandi Parekh MD Primary Care Provider [phone] Reason for Visit * Reason Onset Date Comments Questions 11/13/2023 Requesting lab r esults from 11/12/2023 Encounter Details Date Type Department Care Team (Late st Contact Info) Description 11/13/2023 Telephone Internal Medicine [address] [place] [id number] Niranjan Romano RN 210 [place] [address] Questions (Requesting lab results from 11/12/2023) Social History Tobacco Use Types Packs/Day Years Used Date Smoking Tobacco: Former Cigarettes Q uit: 2018 Passive Smoke Exposure: Past Smokeless Tobacco: Never Comments:06/14/20 pt reports stoped [...] from your doctor or pharmacy? Never 11/12/2023 [facility] Utilities Answer Date Recorded In the past 12 months has e electric, gas, oil, or water company threatened to shut off services in your [...] declined 11/12/2023 How often do you attend temple or anabaptism serv ices? Patient declined 11/12/2023 Do you belong to any clubs o r organizations such as temple groups, unions, fraternal or athletic groups, or [...] Date Recorded PHQ-9 Total Score 4 11/12/2023 [facility] - Occupational Stress [...] any time in the past [address] [facility], were you homeless or living in a assisted (including now)? Patient declined 11/12/2023 Interpersonal Safety Questionnaire Answer Date Recorded How often does anyone, jesus blackburn family and friends, physically hurt you? [...] encounter Miscellaneous Notes * Telephone Encounter - Niranjan Romano RN - 11/13/2023 10:09 AM CDT Pt calls inquiring about lab results from labs obtained 11/12/2023. Hogshead Wrecker communicated the following per Dr. Parekh; Please notify pt that UA/UCX were not suggestive of infection. I would recommend using Estrace cream. Please also let me know if she is interested in seeing urogynecology for an opinion. There is noneed for antibiotic at this time. Patient had no further questions at this time. documented in this encounter Plan of Treatment Not on file documented as of this encounter Visit Diagnoses Not on filedocumented in this encounter Care Teams District Commercial Superintendent Relationship Specialty Start Date End Date Brandi Parekh MD [address] [place] [phone] PCP - General 02/18/22 documented as of this encounter
--- OUTSIDE RECORDS SUMMARY | 2023-11-19 10:55 | XMS_ITS | Encounter Summary ---
Author Organization [facility] er Address [address] [place] [address] Care Team Providers Care No Experience Name Role Phone Brandi Parekh MD Primary Care Provider [phone] Reason for Visit * Reason Onset Date Comments UTI 11/12/2023 Encounter Details Date Type Department Care Team (Late st Contact Info) Description 11/12/2023 Nurse Triage SE Internal Medicine [address] [place] [id number] Brandi Parekh MD [address] [place] [phone] Social History Tobacco Use Types Packs/Day Years [...] from your doctor or pharmacy? Never 11/12/2023 [facility] Utilities Answer Date Recorded In the past 12 months has th e electric, gas, oil, or water company [...] declined 11/12/2023 How often do you attend pentecostal or yarsani serv ices? Patient declined 11/12/2023 Do you belong to any clubs o r organizations such as pentecostal groups, unions, fraternal or athletic groups, or [...] Date Recorded PHQ-9 Total Score 4 11/12/2023 [facility] - Occupational [...] any time in the past [address] [facility], were you homeless or living in a m[facility] (including now)? Patient declined 11/12/2023 Interpersonal Safety [...] encounter Miscellaneous Notes * Telephone Encounter - Lianne Rios RN - 11/12/2023 7:59 AM CDT Patient was seen in Acute Care on 10/18/23 for UTI symptoms. Patient states that the urine sample results were inconclusive. Patient did continue antibiotics. Patient states that about 3 days ago she once again began to experience urgency and burning with urination. Reason for Disposition Age > 50 years Protocols used: Urination Pain - Female-A-OH Patient advised that she should be seen in clinic for evaluation of possible UTI. Patient transferred to schedule. documented in this encounter Plan of Treatment Not on file documented as of this encounter Visit Diagnoses Not on filedocumented in this encounter Care Teams No Experience Relationship Specialty Start Date End Date Brandi Parekh MD [address] [place] [phone] PCP - General 02/18/22 documented as of this encounter
--- OUTSIDE RECORDS SUMMARY | 2023-11-19 10:55 | XMS_ITS | Encounter Summary ---
Author Organization [facility] er Address [address] [place] [address] Care Team Providers Care Housekeeping Supervisor Hotel Name Role Phone Brandi Parekh MD Primary Care Provider [phone] Reason for Visit * Reason Comments UTI Encounter Details Date Type Department Care Team (Late st Contact Info) Description 10/18/2023 10:40 AM CDT Office Visit [facility] [address] [place] [address] [address] [place] [phone] Raheel Warren PA-C [address] [place] [address] Acute cystitis with hematuria (Primary Dx); [...] NEGATIVE Ketones, Urine NEGATIVE NEGATIVE mg/dL Specific [place], Urine 1.015 1.000 ->=1.030 Blood, Urine LARGE [...] Testing SEE BELOW 10/18/2023 11:33 AM CDT [facility] Comment: Urine Culture added to specimen 10/18/2023 11:1 0 AM CDT 10/18/2023 11:10 AM CDT Raheel Warren PA-C LAB BLOOD ORDERABLES Performing Organization Address City/[facility] [address]/ZIP Co de Phone Number [facility] [address] [place] [phone] * Urine culture (10/18/2023 10:46 AM CDT) Urine Culture <10,000 cfu/ml No further ID. 10/19/2023 6:28 AM CDT [facility] Urine (Urine, Clean Catch) 10/18/2023 10:46 AM CDT 10/18/2023 3:36 PM CDT Comment:Urine Culture Raheel Warren PA-C LAB MICROBIOLOGY - G ENERAL ORDERABLES Performing Organization Address City/[facility] [address]/ZIP Co de Phone Number [facility] [address] [place] [phone] * (ABNORMAL) Urinalysis-Microscopic Exam (10/18/2023 10:46 AM CDT) Casts, urine NONE SEEN 0-2 Hyaline /lpf 10/18/2023 5:24 PM CDT [facility] Significant casts, urine NONE SEEN None Seen /lpf 10/18/2023 5:24 PM CDT [facility] RBC, Urine >100(A) 0 - 3 /hpf 10/18/2023 5:24 PM CDT [facility] WBC, Urine 51-100(A) /hpf 10/18/2023 5:24 PM T [facility] Comment: Male: ?? 0-3/hpf Female: 0-10/hpf Squamous Epithelial, Urine FEW Few /lpf 10/18/2023 5:24 PM T [facility] Trans Epithelial, Urine NONE SEEN 0 - 3 /hpf 10/18/2023 5:24 PM T [facility] Renal Tubular Cells, Urine NONE SEEN 0 - 1 /hpf 10/18/2023 5:24 PM T [facility] Bacteria, Urine 1+(A) None Seen - Few /hpf 10/18/2023 5:24 PM T [facility] Urine Crystals NONE SEEN None Seen 10/18/2023 5:24 PM [facility] 10/18/2023 10:4 6 AM CDT 10/18/2023 3:43 PM CDT Raheel Warren PA-C LAB URINE ORDERABLES [facility] [address] [place] [address] * (ABNORMAL) Urinalysis with reflex microscopic (clinic staff collect during appt) (10/18/2023 10:46 AM CDT) Type CLEAN CATCH 10/18/2023 11:01 AM CDT [facility] Color, Urine RED(A) YELLOW 10/18/2023 11:01 AM CDT [facility] Clarity, Urine CLOUDY(A) CLEAR 10/18/2023 11:01 AM CDT [facility] Glucose, Urine NEGATIVE NEGATIVE mg/dL 10/18/2023 11:01 AM CDT [facility] Bilirubin, Urine NEGATIVE NEGATIVE 10/18/2023 11:01 AM CDT [facility] Ketones, Urine NEGATIVE NEGATIVE mg/dL 10/18/2023 11:01 AM CDT [facility] Specific [place], Urine 1.015 1.000 ->=1.030 10/18/2023 11:01 AM CDT [facility] Blood, Urine LARGE(A) NEGATIVE 10/18/2023 11:01 AM CDT [facility] pH, Urine 6.0 5.0 - 7.0 10/18/2023 11:01 AM CDT [facility] Protein, Urine 100(A) NEGATIVE-TRA CE mg/dL 10/18/2023 11:01 AM CDT [facility] Urobilinogen, Urine 0.2 0.2 - 1.0 E.U./dL 10/18/2023 11:01 AM CDT [facility] Nitrite, Urine NEGATIVE NEGATIVE 10/18/2023 11:01 AM CDT [facility] Leukocytes, Urine SMALL(A) NEGATIVE 10/18/2023 11:01 AM CDT [facility] Urine (Urine, Clean Catch) 10/18/2023 10:46 AM CDT 10/18/2023 10:49 AM CDT Raheel Warren PA-C LAB URINE ORDERABLES [facility] [address] [place] [address], documented in this encounter Visit Diagnoses Diagnosis Acute cystitis with hematuria- Primary Urinary frequency documented in this encounter Care Teams Housekeeping Supervisor Hotel Relationship Specialty Start Date End Date Brandi Parekh MD [address] [place] [phone] PCP - General 02/18/22 documented as of this encounter
--- OUTSIDE RECORDS SUMMARY | 2023-11-19 10:55 | XMS_ITS | Encounter Summary ---
Author Organization [facility] er Address [address] [place] [address] Care Team Providers Care Life Skills Teacher Name Role Phone Brandi Parekh MD Primary Care Provider [phone] Encounter Details Date Type Department Care Team (Late st Contact Info) Description 11/12/2023 12:00 PM CDT Lab SE Lab [address] [place], [place] [phone] Urinary urgency; Urinary frequency Social History Tobacco Use Types [...] from your doctor or pharmacy? Never 11/12/2023 [facility] Utilities Answer Date Recorded In the past 12 months has e [employer], gas, oil, or water [employer] threatened to shut off services in your [...] declined 11/12/2023 How often do you attend gnosticist or episcopal serv ices? Patient declined 11/12/2023 Do you belong to any clubs o r organizations such as gnosticist groups, unions, fraternal or athletic groups, or [...] Date Recorded PHQ-9 Total Score 4 11/12/2023 [facility] Occupational Stress Questionnaire Answer [...] any time in the past 12 m [facility], were you homeless or living in a [facility] (including now)? Patient declined 11/12/2023 Interpersonal Safety [...] as of this encounter Miscellaneous Notes * Result Encounter Note - Brandi Parekh MD - 11/12/2023 12:00 PM CDT Please notify pt that UA/UCX were not suggestive of infection. I would recommend using Estrace cream. Please also let me know if she is interested in seeing urogynecology for an opinion. There is no need for antibiotic at this time. documented in this encounter Plan of Treatment Not on file documented as of this encounter Procedures Procedure Name Priority Date/Time Associated Diagnosis Comments URINALYSIS-MICROSCOP IC EXAM (REFLEXED) Routine 11/12/2023 11:58 AM CDT Urinary urgency Urinary frequency URINALYSIS WITH REFLEX MICROSCOPIC Routine 11/12/2023 11:58 AM CDT Urinary urgency Urinary frequency URINE CULTURE Routine 11/12/2023 11:58 AM CDT Urinary urgency Urinary frequency documented in this encounter Results * Urinalysis-Microscopic Exam (11/12/2023 11:58 AM CDT) Casts, urine NONE SEEN 0-2 Hyaline /lpf 11/12/2023 3:58 PM [facility] Significant casts, urine NONE SEEN None Seen /lpf 11/12/2023 3:58 PM [facility] RBC, Urine 0-3 0 - 3 /hpf 11/12/2023 3:58 PM [facility] WBC, Urine 4-10 /hpf 11/12/2023 3:58 PM [facility] Comment: Male: ?? 0-3/hpf Female: 0-10/hpf Squamous Epithelial, Urine FEW Few /lpf 11/12/2023 3:58 PM [facility] Trans Epithelial, Urine NONE SEEN 0 - 3 /hpf 11/12/2023 3:58 PM [facility] Renal Tubular Cells, Urine NONE SEEN 0 - 1 /hpf 11/12/2023 3:58 PM [facility] Bacteria, Urine NONE SEEN None Seen - Few /hpf 11/12/2023 3:58 PM [facility] Urine Crystals NONE SEEN None Seen 11/12/2023 3:58 PM [facility] 11/12/2023 11:5 8 AM CDT 11/12/2023 2:11 PM CDT Brandi Parekh MD LAB URINE ORDERABLES Performing Organization Address City/[facility]/ZIP Co de Phone Number [facility] [address] [place] [phone] * Urine culture (11/12/2023 11:58 AM CDT) Urine Culture Multiple organisms indicating likely contamination. 11/13/2023 7:12 AM CDT [facility] Urine (Urine, Clean Catch) 11/12/2023 11:58 AM CDT 11/12/2023 2:11 PM CDT Comment:Urine Culture Brandi Parekh MD LAB MICROBIOLOGY - G ENERAL ORDERABLES Performing Organization Address City/[facility]/ZIP Co de Phone Number [facility] [address] [place] [address] * (ABNORMAL) Urinalysis with reflex microscopic (11/12/2023 11:58 AM CDT) Type CLEAN CATCH 11/12/2023 12:01 PM CDT [facility] Color, Urine YELLOW YELLOW 11/12/2023 12:06 PM T [facility] Clarity, Urine CLEAR CLEAR 11/12/2023 12:06 PM T [facility] Glucose, Urine NEGATIVE NEGATIVE mg/dL 11/12/2023 12:06 PM T [facility] Bilirubin, Urine NEGATIVE NEGATIVE 11/12/2023 12:06 PM T [facility] Ketones, Urine NEGATIVE NEGATIVE mg/dL 11/12/2023 12:06 PM T [facility] Specific [place], Urine <=1.005 1.000 ->=1.030 11/12/2023 12:06 PM T [facility] Blood, Urine SMALL(A) NEGATIVE 11/12/2023 12:06 PM T [facility] pH, Urine 6.0 5.0 - 7.0 11/12/2023 12:06 PM T [facility] Protein, Urine NEGATIVE NEGATIVE-TRA CE mg/dL 11/12/2023 12:06 PM CDT [facility] Urobilinogen, Urine 0.2 0.2 - 1.0 E.U./dL 11/12/2023 12:06 PM T [facility] Nitrite, Urine NEGATIVE NEGATIVE 11/12/2023 12:06 PM T [facility] Leukocytes, Urine MODERATE(A) NEGATIVE 11/12/2023 12:06 PM T [facility] Urine (Urine, Clean Catch) 11/12/2023 11:58 AM CDT 11/12/2023 12:01 PM CDT Brandi Parekh MD LAB URINE ORDERABLES Performing Organization Address City/State/[facility] Co de Phone Number [facility] [address] [place] [phone] documented in this encounter Visit Diagnoses Diagnosis Urinary urgency Urgency of urination Urinary frequency documented in this encounter Care Teams Life Skills Teacher Relationship Specialty Start Date End Date Brandi Parekh MD [address] [place] [phone] PCP - General 02/18/22 documented as of this encounter
--- OUTSIDE RECORDS SUMMARY | 2023-11-19 10:55 | XMS_ITS | Clinical Summary ---
Author Organization [facility] er Address [address] [place] [address] Care Team Providers Care Special Programs Director Name Role Phone Brandi Parekh MD Primary Care Provider [phone] Allergies Active Allergy Reactions Criticality Noted Date Comments Gluten Nausea And Vomiting Medium 08/20/2018 Naproxen Hives Medium Medications Medication Sig Dispensed Refills Start Date End Date Status Multiple Vitamins-Minerals (MULTIVITAMIN ADULT PO) Take 1 tablet by mouth 1 (one) time each day Active albuterol HFA (VENTOLIN HFA) 108 (90 Base) MCG/ACT inhalerIndications:W heezing Inhale 1 puff every 6 (six) hours if needed for wheezing 18 g 11 12/16/2017 Active Additional Information Patient not taking.Reported on 10/18/2023 Fluticasone Propionate, Inhal, 55 MCG/ACT aerosol powderIndications:Ch ronic rhinitis 1 spray Nasal two times a day as needed 1 each 3 03/24/2018 Active Additional Information Patient not taking.Reported on 10/18/2023 diclofenac (VOLTAREN) 1 % topical gel APPLY 2 GRAMS TOPICALLY 4 TIMES DAILY 1 11/15/2018 Active fluocinonide (LIDEX) 0.05 % external solutionIndications: Seborrhea Apply topically 2 (two) times a day [...] cessation. 05/19/2019 Active QUEtiapine (SEROquel) 25 MG tabletIndications:Co mplex posttraumatic stress disorder Take 1 tablet (25 mg total) by mouth every night 90 tablet 1 06/14/2020 Active Additional Information Patient not taking.Reported on 10/18/2023 levothyroxine (SYNTHROID) 112 MCG tabletIndications:Pr imary hypothyroidism TAKE 1 TABLET BY MOUTH DAILY ON 6 DAYS, AND SKIP DAY 7. 90 tablet 3 07/29/2020 Active DULoxetine (CYMBALTA) [address] capsuleIndications:O ther depression TAKE 3 CAPSULES BY MOUTH DAILY 270 capsule 09/26/2020 Active Additional Information Patient not taking.Reported on 10/18/2023 estradiol (ESTRACE) 0.1 MG/GM vaginal cream INSERT 0.5 GRAMS BY VAGINAL ROUTE ONCE NIGHTLY FOR 2 WEEKS, THEN DECREASE TO TWICE WEEKLY.* 10/24/2023 Active LORazepam (ATIVAN) 0.5 MG tablet Take 1 tablet (0.5 mg total) by mouth 2 (two) times a day if needed for anxiety 10/27/2023 Active traZODone (DESYREL) 100 MG tablet Take 1 tablet (100 mg total) by mouth at night if needed 10/10/2023 Active cefdinir (OMNICEF) 300 MG capsuleIndications:U rinary urgency,Dysuria Take 1 capsule (300 mg total) by mouth 2 (two) times a day for 10 days 20 capsule 11/12/2023 4 Active cefdinir (OMNICEF) 300 MG capsuleIndications:A cute cystitis with hematuria Take 1 capsule (300 mg total) by mouth 2 (two) times a day for 5 days 10 capsule 10/18/2023 4 Active Problems Problem Noted Date Diagnosed Date [...] Encounters Date Type Department Care Team Description 11/13/2023 Telephone Internal Medicine [address] [place] [phone] Niranjan Romano RN Questions (Requesting lab results from 11/12/2023) 11/12/2023 12:00 PM CDT Lab Lab [address] [place] [phone] Urinary urgency; Urinary frequency 11/12/2023 11:30 AM CDT Office Visit Internal Medicine [address] [place] [phone] Brandi Parekh MD Urinary urgency (Primary Dx); Dysuria; Need for vaccination with 20-polyvalent pneumococcal conjugate vaccine; Primary hypothyroidism; Medicare annual wellness visit, initial 11/12/2023 Nurse Triage Internal Medicine [address] [place] [phone] Brandi Parekh MD 10/18/2023 10:40 AM CDT Office Visit [facility] [address] [address] [place] [phone] Raheel Warren PA-C Acute cystitis with hematuria (Primary Dx); Urinary frequency from Last 3 Months Immunizations Name Administration Dates Next Due COVID-19, mRNA, LNP-S, PF, 3 0mcg/0.3mL dose Pfizer 05/08/2020 Flu Vaccine High Dose 65yrs and Older IM 02/13/2023,01/21/2022,01/15/2021,12/31 H1N1 All Forms 02/20/2009 Hepatitis A 07/09/2005,11/19/2004 Hepatitis B 11/12/2005,07/09/2005,11/19/2004 Influenza 6mo-64yrs Quad Pre servative Free IM 12/01/2018,12/16/2017,02/04/2017,11/22 Influenza, Split Virus, Triv alent, Preservative 03/21/2014,12/01/2011,11/11/2010,11/08,04/08/2004,01/04/2003 Influenza, Trivalent, PF 02/20/2009 Lyme Disease 08/14/1999,07/11/1999 Pneumococcal Conjugate 13-Valent 08/29/2020 Pneumococcal Polysaccharide 12/01/2011 Rabies 12/10/2004, 5,11/19/2004,11/19 Td 08/15/2002 Tdap 05/08/2014 Typhoid Inactivated 11/19/2004 Typhoid Live 11/19/2004 Family History Medical History [...] doctor or pharmacy? Never 11/12/2023 [facility] Utilities Answer Date Recorded In the past 12 months has e zanda, oil, or water AppointmentCity threatened to shut off services in your [...] declined 11/12/2023 How often do you attend yazdanism or congregation serv ices? Patient declined 11/12/2023 Do you belong to any clubs o r organizations such as yazdanism groups, unions, fraternal or athletic groups, or [...] Date Recorded PHQ-9 Total Score 4 11/12/2023 [facility] Occupat ional [facility] - Occupational Stress Questionnaire Answer Date Recorded [...] any time in the past 12 m [facility], were you homeless or living in a half-way (including now)? Patient declined 11/12/2023 Interpersonal Safety [...] Mass Index 22.86 11/12/2023 11:22 AM CDT Plan of Treatment Health Maintenance Due Date Last Done Comments CT Colonography 1955 FIT-DNA 1955 Sigmoidoscopy 1955 iFOBT 1955 Zoster Vaccines (1 of 2) 2004 Mammogram 11/04/2019 11/03/2018, 03/09/2017 Pneumococcal Vaccine: 65+ Years (3 of 3 - PPSV23 or PCV20) 08/29/2021 08/29/2020, 12/01/2011 Bone Density Scan 03/09/2022 03/09/2017, , 10/04/2013 COVID-19 Vaccine (3 - season) 2023 05/29/2020, 05/08/2020 Influenza Vaccine (#1) 2023 , 01/21/2022, 01/15/2021, Additional history exists DTaP,Tdap,and Td Vaccines (2 - Td or Tdap) 05/08/2024 05/08/2014, 08/15/2002 Colonoscopy 10/30/2024 10/30/2014 Colorectal Cancer Screening 10/30/2024 Fall Risk Performed 11/11/2024 11/12/2023 Pap Smear Discontinued 08/29/2020, 12/07/2016, 10/23/2014, Additional history exists Medicare Annual Wellness Visit (AWV) Discontinued 11/12/2023 HPV Vaccines Aged Out No longer eligi ble based on patient's age to complete this topic Medical Devices Implanted Type Area Timber Estimator Device Identifier Shelf Expiration Date Model / Serial / Lot [place] Ii Cup 48mm - [id number] Implanted:Qty: 1 on 12/28/2017 by Naresh Hobbs MD at [facility] Right: Hip [employer]uy [employer] 09/29/2026 [id number] / / [id number] [place] Positive Stop - [id number] Implanted:Qty: 1 on 12/28/2017 by Naresh Hobbs MD at [facility] Right: Hip [employer]uy [employer] 08/30/2027 [id number] / / [id number] [place] Por Taper Sz5 Hi Off - [id number] Implanted:Qty: 1 on 12/28/2017 by Naresh Hobbs MD at [facility] Right: Hip [employer]uy [employer] 11/30/2027 [id number] / / [id number] [place] Bone Screw [id number] - [id number] Implanted:Qty: 1 on 12/28/2017 by Naresh Hobbs MD at [facility] Right: Hip [employer]uy [employer] 09/30/2027 [id number] / / [id number] Altrx +4 10d [id number] - [id number] Implanted:Qty: 1 on 12/28/2017 by Naresh Hobbs MD at [facility] Right: Hip [employer]uy [employer] 10/31/2018 [id number] / / [id number] [place] Cer Head 02/12 32mm +5 - [id number] Implanted:Qty: 1 on 12/28/2017 by Naresh Hobbs MD at [facility] Right: Hip [employer]uy [employer] 10/30/2022 [id number] / / [id number] Total Knee Depuy - [id number] Implanted:Qty: 1 on 12/28/2017 by Naresh Hobbs MD at [facility] Right: Hip [id number] / / Procedures Procedure Name Priority Date/Time Associated Diagnosis Comments URINALYSIS-MICROSCOP IC EXAM (REFLEXED) Routine 11/12/2023 11:58 AM CDT Urinary urgency Urinary frequency URINALYSIS WITH REFLEX MICROSCOPIC Routine 11/12/2023 11:58 AM CDT Urinary urgency Urinary frequency URINE CULTURE Routine 11/12/2023 11:58 AM CDT Urinary urgency Urinary frequency ADD-ON TEST REQUEST Routine 10/18/2023 1 1:10 AM CDT Acute cystitis with hematuria URINALYSIS-MICROSCOP IC EXAM (REFLEXED) Routine 10/18/2023 10:46 AM CDT Urinary frequency URINALYSIS WITH REFLEX MICROSCOPIC Routine 10/18/2023 10:46 AM CDT Urinary frequency URINE CULTURE Routine 10/18/2023 10:46 AM CDT MAMMOGRAM BREAST SCREENING BILATERAL Routine 03/09/2017 2:06 PM RUBBER LINER DEXA BONE DENSITY Routine 03/09/2017 1:5 0 PM RUBBER LINER PAP TEST Routine 02/04/2017 12:21 PM RUBBER LINER from Last 3 Months or Most Recently Relevant to Health Maintenance Results * Urinalysis-Microscopic Exam (11/12/2023 11:58 AM CDT) Only the most recent of2 resultswithin the time period is included. Casts, urine NONE SEEN 0-2 Hyaline /lpf 11/12/2023 3:58 PM T [facility] Significant casts, urine NONE SEEN None Seen /lpf 11/12/2023 3:58 PM CDT [facility] RBC, Urine 0-3 0 - 3 /hpf 11/12/2023 3:58 PM CDT [facility] WBC, Urine 4-10 /hpf 11/12/2023 3:58 PM T [facility] Comment: Male: ?? 0-3/hpf Female: 0-10/hpf Squamous Epithelial, Urine FEW Few /lpf 11/12/2023 3:58 PM T [facility] Trans Epithelial, Urine NONE SEEN 0 - 3 /hpf 11/12/2023 3:58 PM T [facility] Renal Tubular Cells, Urine NONE SEEN 0 - 1 /hpf 11/12/2023 3:58 PM T [facility] Bacteria, Urine NONE SEEN None Seen - Few /hpf 11/12/2023 3:58 PM T [facility] Urine Crystals NONE SEEN None Seen 11/12/2023 3:58 PM T [facility] 11/12/2023 11:5 8 AM CDT 11/12/2023 2:11 PM CDT Brandi Parekh MD LAB URINE ORDERABLES [facility] [address] [place] [address] * (ABNORMAL) Urinalysis with reflex microscopic (11/12/2023 11:58 AM CDT) Only the most recent of2 resultswithin the time period is included. Type CLEAN CATCH 11/12/2023 12:01 PM CDT [facility] Color, Urine YELLOW YELLOW 11/12/2023 12:06 PM [facility] Clarity, Urine CLEAR CLEAR 11/12/2023 12:06 PM [facility] Glucose, Urine NEGATIVE NEGATIVE mg/dL 11/12/2023 12:06 PM [facility] Bilirubin, Urine NEGATIVE NEGATIVE 11/12/2023 12:06 PM [facility] Ketones, Urine NEGATIVE NEGATIVE mg/dL 11/12/2023 12:06 PM [facility] Specific [place], Urine <=1.005 1.000 ->=1.030 11/12/2023 12:06 PM [facility] Blood, Urine SMALL(A) NEGATIVE 11/12/2023 12:06 PM [facility] pH, Urine 6.0 5.0 - 7.0 11/12/2023 12:06 PM [facility] Protein, Urine NEGATIVE NEGATIVE-TRA CE mg/dL 11/12/2023 12:06 PM [facility] Urobilinogen, Urine 0.2 0.2 - 1.0 E.U./dL 11/12/2023 12:06 PM [facility] Nitrite, Urine NEGATIVE NEGATIVE 11/12/2023 12:06 PM [facility] Leukocytes, Urine MODERATE(A) NEGATIVE 11/12/2023 12:06 PM [facility] Urine (Urine, Clean Catch) 11/12/2023 11:58 AM CDT 11/12/2023 12:01 PM CDT Brandi Parekh MD LAB URINE ORDERABLES [facility] [address] [place] [address] * Urine culture (11/12/2023 11:58 AM T) Only the most recent of2 resultswithin the time period is included. Urine Culture Multiple organisms indicating likely contamination. 11/13/2023 7:12 AM T [facility] Urine (Urine, Clean Catch) 11/12/2023 11:58 AM CDT 11/12/2023 2:11 PM CDT Comment:Urine Culture Brandi Parekh MD LAB MICROBIOLOGY - G ENERAL ORDERABLES Performing Organization Address City/[facility]/ZIP Co de Phone Number [facility] [address] [place] [address] * Add-On Test Request (10/18/2023 11:10 AM CDT) Add-on Testing SEE BELOW 10/18/2023 11:33 AM CDT [facility] Comment: Urine Culture added to specimen 10/18/2023 11:1 0 AM CDT 10/18/2023 11:10 AM CDT Raheel Warren PA-C LAB BLOOD ORDERABLES Performing Organization Address [facility] Co de Phone Number [facility] [address] [place] [address] * Mammogram breast screening bilateral (03/09/2017 2:06 PM RUBBER LINER) Anatomical Region Laterality Modality Breast Bilateral Mammography 03/09/2017 2:06 PM RUBBER LINER Impressions 03/09/2017 6:17 PM RUBBER LINER IMPRESSION: BILATERAL BREASTS Negative, no evidence of malignancy. Normal interval follow-up is recommended in 12 months. ASSESSMENT: BI-RADS 1: Final Overall Assessment: Negative ResultCode BIRADS: 1 Side: B-Bilateral Breast composition: 2-Scattered Fibroglandular (25%-50%) Recommendation: N-Normal interval follow up in 12 months CAD REVIEW: Computer aided detection equipment was used during the interpretation of this study.- Narrative 03/09/2017 6:17 PM RUBBER LINER EXAM DESCRIPTION: MAMMOGRAM BILATERAL SCREENING DIGITAL INDICATION: [...] bone density axial skeleton (03/09/2017 1:50 PM RUBBER LINER) Anatomical Region Laterality Modality Wrist, Hip, L-spine Radiographic Imaging 03/09/2017 1:50 PM RUBBER LINER Impressions 03/09/2017 2:18 PM RUBBER LINER IMPRESSION: Osteopenia FINDINGS: Patient: MARVA DURAN Birthdate: ??1955, [age] Height/Weight: ??159.5 cm, 54.6 kg Gender/Ethnicity: Female, White Facility ID: (not specified) Referring Physician: Won Gallagher ?? Measured: ??03/09/2017, 1:40:34 PM, 1360 Analyzed: ??03/09/2017, 1:45:14 PM, 13.60 Results: Region [...] determine T- Scores. Narrative 03/09/2017 2:18 PM RUBBER LINER INDICATION: osteopenia f/u; Indication for exam: Previously [...] for bone loss; IMPRESSION: Osteopenia FINDINGS: Patient: MARVA DURAN Birthdate: 1955, [age] Height/Weight: 159.5 cm, 54.6 kg Gender/Ethnicity: Female, White Facility ID: (not specified) Referring Physician: Won Gallagher MD Measured: 03/09/2017, 1:40:34 PM, 13.60 Analyzed: 03/09/2017, 1:45:14 PM, 13.60 Results: Region Measured Age BMD T-score Z-score [...] to determine T- Scores. Won Gallagher MD [facility] DXA PROCEDURES * Pap Smear (02/04/2017 12:21 PM RUBBER LINER) Pathologist [facility] SurePath Pap Test SEE BELOW [facility] Comment: ? [facility] ? [address] ?[place] [address] ? Patient: ?MARVA DURAN ? Procedure: ? 02/04/2017 12:21 /Age/Sex: ??1955, 61 Y, F ? Received: ?02/05/2017 08:30 ?Accession #: ?? [id number] Billing: ?[id number] ?[facility] Ordered by: ?? WON GALLAGHER MD ? Attending: ? WON GALLAGHER MD ? ENTRY LEVEL MANAGEMENT CYTOLOGY FINAL REPORT SPECIMEN: (A) SURE PATH PAP, SCREEN SPECIMEN DESCRIPTION: Cervical/Endocervical Received cloudy specimen in SurePath vial. CLINICAL INFORMATION: ?? Prev.abnormal: 2015 ?? Comment: Cryo/Laser/LEEP/Colposcopy: 2015. SPECIMEN ADEQUACY: Satisfactory for Evaluation. ??No endocervical [...] Sure Path PAP, screen 02/04/2017 12:21 PM RUBBER LINER 02/05/2017 8:30 AM RUBBER LINER Won Gallagher MD LAB CYTOLOGY ORDERAB LES [facility] [address] [place] [address] from Last 3 Months or Most Recently Relevant to Health Maintenance Advance Directives For more information, please contact: [phone] * Full Code (Latest Code Status on File) Date Activated Date Inactivated Comments 12/28/2017 9:36 AM 12/29/2017 2:23 PM Care Teams Special Programs Director Relationship Specialty Start Date End Date rBandi Parekh MD [address] [place] [phone] PCP - General 02/18/22
--- OUTSIDE RECORDS SUMMARY | 2023-11-19 10:56 | XMS_ITS | Encounter Summary ---
Author Organization [facility] er Address [address] [place] [address] Care Team Providers Care Test Equipment Mechanic Name Role Phone Brandi Parekh MD Primary Care Provider [phone] Reason for Visit * Reason Comments Med Refill Encounter Details Date Type Department Care Team (Late st Contact Info) Description 05/28/2020 Refill SE Internal Medicine [address] [place] [address] Brandi Parekh MD 210 [place] [phone] Primary hypothyroidism Social History Tobacco [...] hypothyroidism documented in this encounter Care Teams Test Equipment Mechanic Relationship Specialty Start Date End Date Brandi Parekh MD [address] [place] [phone] PCP - General 02/18/22 documented as of this encounter
--- OUTSIDE RECORDS SUMMARY | 2023-11-19 10:56 | XMS_ITS | Encounter Summary ---
Author Organization [facility] er Address [address] [place] [address] Care Team Providers Care Chemical Compounder Name Role Phone Brandi Parekh MD Primary Care Provider [phone] Reason for Visit * Reason Onset Date Comments Med Refill 03/24/2018 Med Refill 04/14/2018 Encounter Details Date Type Department Care Team (Late st Contact Info) Description 03/24/2018 Refill SE Internal Medicine [address] [place], [place] [phone] Junie Gallagher MD Chronic rhinitis (Primary Dx) Social History Tobacco [...] pre - op. 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
--- OUTSIDE RECORDS SUMMARY | 2023-11-19 10:56 | XMS_ITS | Encounter Summary ---
Author Organization [facility] er Address [address] [place] [address] Care Team Providers Care Device Processing Engineer Name Role Phone Brandi Parekh MD Primary Care Provider [phone] Reason for Visit * Reason Comments Med Refill Encounter Details Date Type Department Care Team (Late st Contact Info) Description 05/11/2020 Refill SE Internal Medicine [address] [place] [phone] Brandi Parekh MD 210 [place] [phone] Primary hypothyroidism (Primary Dx) Social [...] Receipt confirmed by pharmacy (03/23/2020 12:37 PM COMMERCIAL STRIPPER) Please advise pharmacy if patient is to continue Levothyroxine 88mcg dosage. documented in this encounter Plan of Treatment Not on file documented as of this encounter Visit Diagnoses Diagnosis Primary hypothyroidism- Primary Unspecified hypothyroidism documented in this encounter Care Teams Device Processing Engineer Relationship Specialty Start Date End Date Brandi Parekh MD [address] [place] [phone] PCP - General 02/18/22 documented as of this encounter
--- OUTSIDE RECORDS SUMMARY | 2023-11-19 10:56 | XMS_ITS | Encounter Summary ---
Author Organization [facility] er Address [address] [place] [address] Care Team Providers Care Agitator Operator Name Role Phone Brandi Parekh MD Primary Care Provider [phone] Encounter Details Date Type Department Care Team (Late st Contact Info) Description 12/30/2017 Telephone [facility] [address] [place] [address] [place] [address] [place] [phone] Social History Tobacco Use Types Packs/Day [...] on filedocumented in this encounter Care Teams Agitator Operator Relationship Specialty Start Date End Date Brandi Parekh MD 210 [place] [phone] PCP - General 02/18/22 documented as of this encounter
--- OUTSIDE RECORDS SUMMARY | 2023-11-19 10:56 | XMS_ITS | Encounter Summary ---
Author Organization [facility] er Address [address] [place] [address] Care Team Providers Care Trauma Therapist Name Role Phone Brandi Parekh MD Primary Care Provider [phone] Reason for Visit * Reason Comments Med Refill Encounter Details Date Type Department Care Team (Late st Contact Info) Description 06/05/2020 Refill SE Internal Medicine [address] [place] [address] Brandi Parekh MD 210 [place] [phone] Primary hypothyroidism Social History Tobacco [...] [facility]. I will re process it per protocol, send to the [facility] pharmacy in [place], take [facility] out of patient preferred pharmacy (she states, I am done with them) and call them to ask them to stop sending us requests. documented in this encounter Plan of Treatment Not on file documented as of this encounter Visit Diagnoses Diagnosis Primary hypothyroidism Unspecified hypothyroidism documented in this encounter Care Teams Trauma Therapist Relationship Specialty Start Date End Date Brandi Parekh MD [address] [place] [phone] PCP - General 02/18/22 documented as of this encounter
--- OUTSIDE RECORDS SUMMARY | 2023-11-19 10:56 | XMS_ITS | Encounter Summary ---
Author Organization [facility] er Address [address] [place] [address] Care Team Providers Care Corporate Planner Name Role Phone Brandi Parekh MD Primary Care Provider [phone] Reason for Visit * Reason Comments Med Refill Encounter Details Date Type Department Care Team (Late st Contact Info) Description 02/17/2020 Refill SE Internal Medicine [address] [place] [address] Brandi Parekh MD 210 [place] [phone] Primary hypothyroidism Social History Tobacco [...] encounter Miscellaneous Notes * Telephone Encounter - BarbaraMavis - 02/20/2020 12:28 PM CST Pt has been out of meds for over 4 days. IC PHYSICS TEACHER * Telephone Encounter - Kyra Kasper MA - 02/20/2020 12:19 PM ATOMIC PHYSICS TEACHER Last visit in provider department: 11/24/2019 Last [...] Please contact patient to assist with scheduling. IC PHYSICS TEACHER documented in this encounter Plan of Treatment Not on file documented as of this encounter Visit Diagnoses Diagnosis Primary hypothyroidism Unspecified hypothyroidism documented in this encounter Care Teams Corporate Planner Relationship Specialty Start Date End Date Brandi Parekh MD [address] [place] [phone] PCP - General 02/18/22 documented as of this encounter
--- OUTSIDE RECORDS SUMMARY | 2023-11-19 10:56 | XMS_ITS | Encounter Summary ---
Author Organization [facility] er Address [address] [place] [address] Care Team Providers Care Broadcast Operations Director Name Role Phone Brandi Parekh MD Primary Care Provider [phone] Reason for Visit * Reason Onset Date Comments Med Refill 03/23/2020 Encounter Details Date Type Department Care Team (Late st Contact Info) Description 03/23/2020 Refill SE Internal Medicine [address] [place] [address] Brandi Parekh MD 210 [place] [phone] Primary hypothyroidism Social History Tobacco [...] Alia Vaughan MA - 03/23/2020 7:55 AM TOURIST INFORMATION ASSISTANT Last visit in provider department: 11/24/2019 Last [...] mIU/L 0.08 (L) Pending TSH in chart IST INFORMATION ASSISTANT documented in this encounter Plan of Treatment Not on file documented as of this encounter Visit Diagnoses Diagnosis Primary hypothyroidism Unspecified hypothyroidism documented in this encounter Care Teams Broadcast Operations Director Relationship Specialty Start Date End Date Brandi Parekh MD [address] [place] [phone] PCP - General 02/18/22 documented as of this encounter
== END 2023-11-18 13:16 | disposition home or self-care (01) ==
LOC: NFLDREF 11-19 10:53
PROVIDERS: PCP Family Medicine; Referring Provider Family Medicine; Visit Provider Family Medicine
DX: E05.90 Thyrotoxicosis, unspecified without thyrotoxic crisis or storm (principal)
CPT/HCPCS: 84439; 84443